=== PATIENT | female | born 1965 | race Caucasian/White ===

== ENCOUNTER 2021-05-04 19:22 | Inpatient (IN) | payer OTHER ==
[2021-05-04] MEDS ORDERED: SODIUM CHLORIDE 0.9% 1,000 ML IV STA (20:00)
[2021-05-04] MEDS ORDERED: HYDROmorphone 0.5 MG/0.5 ML SYRINGE IVP STA (20:00)
[2021-05-04] MEDS ORDERED: ONDANSETRON 4 MG/2 ML VIAL IVP STA (20:00)
--- NOTE | 2021-05-04 20:12 | ED ---
General Adult HPI - General Chief complaint: Abdominal Pain Stated complaint: chest pain, side pain Time Seen by Provider: 05/04/21 19:40 Source: patient, RN notes reviewed Mode of arrival: wheelchair Limitations: no limitations - History of Present Illness Initial comments: 55-year-old female with a possible history of asthma, hypertension presents to the emergency room for a chief complaint of abdominal pain. Patient reports that she has had upper abdominal pain for about 4 days now. Patient states this started after she thought she eats too much for dinner. Patient states that she is also having nausea and vomiting. Patient denies fevers. Patient denies any history of cholecystectomy. Patient reports she ate some chicken for dinner and it worsened significantly today. Currently rating pain at a 7 out of 10. Patient has no other complaints at this time including shortness of breath, chest pain, headache, or visual changes. - Related Data Home Medications Medication Instructions Recorded Confirmed Cyanocobalamin (Vitamin B-12) 1,000 mcg PO DAILY 05/04/21 05/04/21 [Vitamin B-12] Levothyroxine Sodium [Euthyrox] 50 mcg PO DAILY@0230 05/04/21 05/04/21 Metoprolol Tartrate [Lopressor] 25 mg PO BID 05/04/21 05/04/21 Previous Rx's Medication Instructions Recorded Losartan [Cozaar] 25 mg PO DAILY #30 tab 05/15/16 Allergies Allergy/AdvReac Type Severity Reaction Status Date / Time codeine Allergy Rash/Hives Verified 05/04/21 20:33 meperidine HCl [From Demerol] Allergy Rash/Hives Verified 05/04/21 20:33 Penicillins Allergy Rash/Hives Verified 05/04/21 22:42 acetaminophen [From Vicodin] AdvReac Nausea & Verified 05/04/21 20:33 Vomiting hydrocodone bitartrate AdvReac Nausea & Verified 05/04/21 20:33 [From Vicodin] Vomiting Review of Systems ROS Statement: Those systems with pertinent positive or pertinent negative responses have been documented in the HPI. ROS Other: All systems not noted in ROS Statement are negative. Past Medical History Past Medical History: Asthma, Hypertension, Thyroid Disorder History of Any Multi-Drug Resistant Organisms: None Reported Past Surgical History: Section, Hysterectomy, Orthopedic Surgery Additional Past Surgical History / Comment(s): ORIF LT ELBOW. RT EAR KELOID REMOVED Past Anesthesia/Blood Transfusion Reactions: No Reported Reaction Past Psychological History: No Psychological Hx Reported Smoking Status: Former smoker Past Alcohol Use History: None Reported Past Drug Use History: None Reported - Past Family History Mother History Unknown: Yes Additional Family Medical History / Comment(s): PT ADOPTED FAMILY HX UNKNOWN General Exam Limitations: no limitations General appearance: alert, in no apparent distress Head exam: Present: atraumatic, normocephalic, normal inspection Eye exam: Present: normal appearance, PERRL, EOMI. Absent: scleral icterus ENT exam: Present: normal exam, mucous membranes moist Neck exam: Present: normal inspection, full ROM. Absent: tenderness Respiratory exam: Present: normal lung sounds bilaterally. Absent: respiratory distress, wheezes Cardiovascular Exam: Present: regular rate, normal rhythm, normal heart sounds GI/Abdominal exam: Present: soft, tenderness (epigastric and RUQ tenderness), normal bowel sounds. Absent: distended, guarding, rebound, rigid Neurological exam: Present: alert Course Vital Signs 05/04/21 19:31 Temperature 98.5 F Pulse Rate 96 Respiratory 20 Rate Blood Pressure 150/91 O2 Sat by Pulse 97 Oximetry EKG Findings - EKG Comments: EKG Findings:: Normal sinus rhythm, ventricular rate 97, MT interval 134, QTC 436 Medical Decision Making - Medical Decision Making Vitals are stable. CBC is unremarkable. CMP however does show transaminitis and pancreatitis. Troponin negative. EKG nonischemic. Urinalysis does show ev idence of infection. Ultrasound was obtained which did show a slightly thickened gallbladder wall but they were unable to see the, bile duct. Concern for cholecystitis, patient started on Zosyn. Surgery consulted. CT pending prior to computer shut down. Patient was started on Levaquin given she has a penicillin ALLERGY that she forgot about. - Lab Data Result diagrams: 05/04/21 20:03 05/04/21 20:03 Lab Results 05/04/21 05/04/21 05/04/21 Range/Units 20:03 20:03 20:03 WBC 9.4 (3.8-10.6) k/uL RBC 4.66 (3.80-5.40) m/uL Hgb 14.5 (11.4-16.0) gm/dL Hct 41.3 (34.0-46.0) % MCV 88.7 (80.0-100.0) fL MCH 31.2 (25.0-35.0) pg MCHC 35.2 (31.0-37.0) g/dL RDW 12.5 (11.5-15.5) % Plt Count 326 (150-450) k/uL MPV 7.3 Neutrophils % 73 % Lymphocytes % 15 % Monocytes % 9 % Eosinophils % 2 % Basophils % 0 % Neutrophils # 6.9 (1.3-7.7) k/uL Lymphocytes # 1.4 (1.0-4.8) k/uL Monocytes # 0.9 (0-1.0) k/uL Eosinophils # 0.2 (0-0.7) k/uL Basophils # 0.0 (0-0.2) k/uL PT 9.8 (9.0-12.0) sec INR 0.9 (<1.2) APTT 22.8 (22.0-30.0) sec Sodium (137-145) mmol/L Potassium (3.5-5.1) mmol/L Chloride (98-107) mmol/L Carbon Dioxide (22-30) mmol/L Anion Gap mmol/L BUN (7-17) mg/dL Creatinine (0.52-1.04) mg/dL Est GFR (CKD-EPI)AfAm (>60 ml/min/1.73 sqM) Est GFR (CKD-EPI)NonAf (>60 ml/min/1.73 sqM) Glucose (74-99) mg/dL Plasma Lactic Acid Shivam (0.7-2.0) mmol/L Calcium (8.4-10.2) mg/dL Total Bilirubin (0.2-1.3) mg/dL AST (14-36) U/L ALT (4-34) U/L Alkaline Phosphatase (38-126) U/L Troponin I (0.000-0.034) ng/mL Total Protein (6.3-8.2) g/dL Albumin (3.5-5.0) g/dL Amylase (30-110) U/L Lipase (23-300) U/L Urine Color Yellow Urine Appearance Cloudy H (Clear) Urine pH 6.0 (5.0-8.0) Ur Specific Hudson 1.019 (1.001-1.035) Urine Protein Trace H (Negative) Urine Glucose (UA) Negative (Negative) Urine Ketones Negative (Negative) Urine Blood Trace H (Negative) Urine Nitrite Negative (Negative) Urine Bilirubin Negative (Negative) Urine Urobilinogen <2.0 (<2.0) mg/dL Ur Leukocyte Esterase Large H (Negative) Urine RBC 2 (0-5) /hpf Urine WBC >182 H (0-5) /hpf Ur Squamous Epith Cells 4 (0-4) /hpf Urine Bacteria Few H (None) /hpf Urine Mucus Rare H (None) /hpf 05/04/21 05/04/21 05/04/21 Range/Units 20:03 20:03 20:03 WBC (3.8-10.6) k/uL RBC (3.80-5.40) m/uL Hgb (11.4-16.0) gm/dL Hct (34.0-46.0) % MCV (80.0-100.0) fL MCH (25.0-35.0) pg MCHC (31.0-37.0) g/dL RDW (11.5-15.5) % Plt Count (150-450) k/uL MPV Neutrophils % % Lymphocytes % % Monocytes % % Eosinophils % % Basophils % % Neutrophils # (1.3-7.7) k/uL Lymphocytes # (1.0-4.8) k/uL Monocytes # (0-1.0) k/uL Eosinophils # (0-0.7) k/uL Basophils # (0-0.2) k/uL PT (9.0-12.0) sec INR (<1.2) APTT (22.0-30.0) sec Sodium 135 L (137-145) mmol/L Potassium 4.2 (3.5-5.1) mmol/L Chloride 99 (98-107) mmol/L Carbon Dioxide 25 (22-30) mmol/L Anion Gap 11 mmol/L BUN 18 H (7-17) mg/dL Creatinine 0.74 (0.52-1.04) mg/dL Est GFR (CKD-EPI)AfAm >90 (>60 ml/min/1.73 sqM) Est GFR (CKD-EPI)NonAf >90 (>60 ml/min/1.73 sqM) Glucose 141 H (74-99) mg/dL Plasma Lactic Acid Shivam 1.2 (0.7-2.0) mmol/L Calcium 9.7 (8.4-10.2) mg/dL Total Bilirubin 0.7 (0.2-1.3) mg/dL AST 102 H (14-36) U/L ALT 205 H (4-34) U/L Alkaline Phosphatase 151 H (38-126) U/L Troponin I <0.012 (0.000-0.034) ng/mL Total Protein 7.6 (6.3-8.2) g/dL Albumin 4.7 (3.5-5.0) g/dL Amylase 444 H* (30-110) U/L Lipase 3436 H (23-300) U/L Urine Color Urine Appearance (Clear) Urine pH (5.0-8.0) Ur Specific Hudson (1.001-1.035) Urine Protein (Negative) Urine Glucose (UA) (Negative) Urine Ketones (Negative) Urine Blood (Negative) Urine Nitrite (Negative) Urine Bilirubin (Negative) Urine Urobilinogen (<2.0) mg/dL Ur Leukocyte Esterase (Negative) Urine RBC (0-5) /hpf Urine WBC (0-5) /hpf Ur Squamous Epith Cells (0-4) /hpf Urine Bacteria (None) /hpf Urine Mucus (None) /hpf Disposition Clinical Impression: Pancreatitis, Transaminitis, Abdominal pain Disposition: ADMITTED IP TO THIS HOSP Is patient prescribed a controlled substance at d/c from ED?: No Referrals: Naomi Godoy MD [Primary Care Provider] - 1-2 days Time of Disposition: 22:17
[2021-05-04 20:25] LABS: ALT 205 U/L (4-34); AST 102 U/L (14-36); African American GFR (CKD) >90 (>60 ml/min/1.73 sqM); Albumin 4.7 g/dL (3.5-5.0); Alkaline Phosphatase 151 U/L (38-126); Anion Gap 11 mmol/L; Blood Urea Nitrogen 18 mg/dL (7-17); Calcium 9.7 mg/dL (8.4-10.2); Carbon Dioxide 25 mmol/L (22-30); Chloride 99 mmol/L (98-107); Glucose 141 mg/dL (74-99); Non-African American GFR(CKD) >90 (>60 ml/min/1.73 sqM); Potassium 4.2 mmol/L (3.5-5.1); Sodium 135 mmol/L (137-145); Total Bilirubin 0.7 mg/dL (0.2-1.3); Total Protein 7.6 g/dL (6.3-8.2)
[2021-05-04 20:29] LABS: Basophils % (A) 0 %; Eosinophils # (A) 0.2 k/uL (0-0.7); Eosinophils % (A) 2 %; HCT 41.3 % (34.0-46.0); HGB 14.5 gm/dL (11.4-16.0); Lymphocytes # (A) 1.4 k/uL (1.0-4.8); Lymphocytes % (A) 15 %; MCH 31.2 pg (25.0-35.0); MCHC 35.2 g/dL (31.0-37.0); MCV 88.7 fL (80.0-100.0); Mean Platelet Volume 7.3; Monocytes # (A) 0.9 k/uL (0-1.0); Monocytes % (A) 9 %; Neutrophils # (A) 6.9 k/uL (1.3-7.7); Neutrophils % (A) 73 %; Platelet Count 326 k/uL (150-450); RBC 4.66 m/uL (3.80-5.40); RDW 12.5 % (11.5-15.5); WBC 9.4 k/uL (3.8-10.6)
[2021-05-04 20:31] LABS: Lipase 3436 U/L (23-300)
[2021-05-04 20:35] LABS: Appearance,Urine Cloudy (Clear); Bacteria,Urine Few /hpf; Bilirubin,Urine Negative (Negative); Blood,Urine Trace (Negative); Color,Urine Yellow; Glucose,Urine (UA) Negative (Negative); Ketones,Urine Negative (Negative); Leukocyte Esterase,Urine Large (Negative); Mucus,Urine Rare /hpf; Nitrite,Urine Negative (Negative); Protein,Urine Trace (Negative); RBC,Urine 2 /hpf (0-5); Specific Gravity,Urine 1.019 (1.001-1.035); Squamous Epithelial Cell,Urine 4 /hpf (0-4); Urobilinogen,Urine <2.0 mg/dL (<2.0); WBC,Urine >182 /hpf (0-5)
[2021-05-04 20:36] LABS: Amylase 444 U/L (30-110)
--- NOTE | 2021-05-04 20:37 | XR ---
EXAMINATION TYPE: XR KUB DATE OF EXAM: 05/04/2021 COMPARISON: NONE HISTORY: Pain TECHNIQUE: 2 views FINDINGS: Bowel gas pattern is normal. There is no sign of intestinal obstruction or pneumoperitoneum . Fecal pattern is normal. There is no evidence of a mass. There are no pathologic calcifications ove r the kidneys. IMPRESSION: Nonacute abdomen.
--- NOTE | 2021-05-04 20:38 | XR ---
EXAMINATION TYPE: XR chest 2V DATE OF EXAM: 05/04/2021 COMPARISON: 05/14/2016 HISTORY: Epigastric pain TECHNIQUE: 2 views FINDINGS: Heart and mediastinum are normal. Lungs are clear. Diaphragm is normal. Bony thorax is inta ct. Pulmonary vascularity is normal. IMPRESSION: Normal chest. No change.
[2021-05-04 20:52] LABS: INR 0.9 (<1.2); Partial Thromboplastin Time 22.8 sec (22.0-30.0); Prothrombin Time 9.8 sec (9.0-12.0)
--- NOTE | 2021-05-04 21:38 | US ---
EXAMINATION TYPE: US gallbladder DATE OF EXAM: 05/04/2021 COMPARISON: NONE CLINICAL HISTORY: pain, nv. Pain, nausea, vomiting. EXAM MEASUREMENTS: Liver Length: 18.3 cm Gallbladder Wall: 0.38 cm CBD: Not seen. Right Kidney: 11.4 x 5.2 x 4.8 cm Limited due to patient body habitus and overlying bowel gas. Pancreas: Duct measures 2.7 cm. Limited visibility of tail. Liver: Complex area seen within the left lobe: 1.2 x 1.4 x 0.8 cm. Increased echogenicity and attenu ation. Appears enlarged and coarse. ?Complex, indistinct area anterior to the left lobe of the liver versus normal tissue?- arrow indicat es this area in transverse image. Gallbladder: Internal echoes versus artifact seen. Wall appears to measure slightly thickened at 0.4 cm. Evidence for sonographic Pablo's sign: No CBD: Not seen. Right Kidney: No hydronephrosis or masses seen IMPRESSION: 1.4 cm cyst in the left lobe of the liver. No gallstones. Gallbladder not well evaluated due to patie nt's size. No dilated ducts. Fatty infiltration of the liver.
[2021-05-04] MEDS ORDERED: PIPERACILLIN-TAZOBACTAM 3.375 GM in SODIUM CHLORIDE 0.9% 100 ML IVPB STA (21:54)
[2021-05-04] MEDS ORDERED: NALOXONE 0.4 MG/ML 1 ML VIAL IV PRN (22:10)
--- NOTE | 2021-05-04 22:27 | CT ---
EXAMINATION TYPE: CT abdomen pelvis w con DATE OF EXAM: 05/04/2021 COMPARISON: None HISTORY: EPIGASTRIC PAIN X4 DAYS CT DLP: 1845.2 mGycm Automated exposure control for dose reduction was used. CONTRAST: Performed with IV Contrast, patient injected with 100 mL of Isovue 300. Images obtained from the diaphragm to the floor the pelvis with IV contrast. Lung bases are clear. There is no pleural effusion. Heart size is normal. There is no pericardial eff usion. There is some fatty infiltration of the liver. There is 1 cm cyst in the left lobe of the liver. Sple en appears intact. There is minimal fat stranding in the left anterior pararenal space. The pancreas is intact. I do not see any significant focal abnormality of the pancreas. The bile ducts are not dil ated. Gallbladder appears normal. There is no adrenal mass. Kidneys show satisfactory contrast opacification. There is no hydronephrosi s. Delayed images show normal renal excretion. The ureters are not dilated. Bladder distends smoothly . There is no inguinal hernia. There is hysterectomy. There is no free fluid in the pelvis. Lumbar ve rtebra have normal alignment. There is no compression fracture. The bony pelvis is intact. The hip wilian ints are intact. There is no hip dysplasia. There is no mesenteric edema. There is no ascites or free air. There is no sign of a bowel obstructio n. Appendix appears normal. IMPRESSION: There is some minimal fat stranding and fluid in the left anterior pararenal space. This could relate to some focal pancreatitis involving the tail of the pancreas. Mild fatty infiltration of the liver.
[2021-05-04] MEDS ORDERED: LEVOFLOXACIN 750MG-D5W PMX 750 MG in DEXTROSE/WATER 1 150ML.BAG IVPB STA (22:47)
[2021-05-05] MEDS: SODIUM CHLORIDE 0.9% 1,000 ML IV SCH ×3 (06:17→20:47)
[2021-05-05] MEDS ORDERED: PIPERACILLIN-TAZOBACTAM 3.375 GM in SODIUM CHLORIDE 0.9% 100 ML IVPB SCH (07:00)
[2021-05-05] MEDS: HYDROmorphone 0.5 MG/0.5 ML SYRINGE IVP PRN ×3 (08:06→18:25)
[2021-05-05] MEDS: ONDANSETRON 4 MG/2 ML VIAL IVP PRN ×2 (09:04→18:24)
[2021-05-05 12:52] LABS: ALT 139 U/L (4-34); AST 59 U/L (14-36); African American GFR (CKD) >90 (>60 ml/min/1.73 sqM); Albumin 3.7 g/dL (3.5-5.0); Albumin/Globulin Ratio 1.5; Alkaline Phosphatase 117 U/L (38-126); Anion Gap 7 mmol/L; Blood Urea Nitrogen 12 mg/dL (7-17); Calcium 8.5 mg/dL (8.4-10.2); Carbon Dioxide 25 mmol/L (22-30); Chloride 105 mmol/L (98-107); Globulin 2.5 g/dL; Glucose 117 mg/dL (74-99); Lipase 1944 U/L (23-300); Non-African American GFR(CKD) >90 (>60 ml/min/1.73 sqM); Potassium 4.1 mmol/L (3.5-5.1); Sodium 137 mmol/L (137-145); Total Bilirubin 0.5 mg/dL (0.2-1.3); Total Protein 6.2 g/dL (6.3-8.2)
[2021-05-05 13:01] LABS: Amylase 331 U/L (30-110)
[2021-05-05] MEDS: METOPROLOL TARTRATE 25 MG TAB PO SCH ×2 (13:33→20:46)
--- NOTE | 2021-05-05 14:56 | P.GSCN ---
<Elsa Manzanares - Last Filed: 05/05/21 14:45> History of Present Illness Consult date: 05/05/21 History of present illness: CHIEF COMPLAINT: Abdominal pain HISTORY OF PRESENT ILLNESS: This is a 55-year-old female with a known history of hypertension, asthma, hypothyroidism and former smoker. Past surgical history includes and hysterectomy. Patient presents to emergency room with complaints of epigastric abdominal pain. Symptoms started Monday evening after eating a chicken hari. Patient has never had symptoms like this before. She was having nausea and vomiting. She was found to have elevated amylase and lipase with computed tomography scan of the abdomen showing minimal fat stranding and fluid in the left anterior pararenal space. This could relate to some focal pancreatitis involving the tail of the pancreas. Mild fatty infiltration of the liver. Ultrasound gallbladder 1.4 cm cyst in the left lobe of the liver. No gallstones. Gallbladder not well evaluated due to patient's size. No dilated ducts. Fatty infiltration of the liver. Patient denies alcohol use. Surgical consult was placed for pancreatitis. PAST MEDICAL HISTORY: See list. PAST SURGICAL HISTORY: See list. MEDICATIONS: See list. ALLERGIES: See list. SOCIAL HISTORY: No illicit drug use. REVIEW OF SYSTEMS: CONSTITUTIONAL: Denies fever or chills. HEENT: Denies blurred vision, vision changes, or eye pain. Denies hemoptysis CARDIOVASCULAR: Denies chest pain or pressure. RESPIRATORY: No shortness of breath. GASTROINTESTINAL: See HPI for pertinent findings HEMATOLOGIC: Denies bleeding disorders. GENITOURINARY: Denies any blood in urine or increased urinary frequency. SKIN: Denies pruitis. Denies rash. PHYSICAL EXAM: VITAL SIGNS: Reviewed GENERAL: Well-developed in no acute distress. HEENT: No sclera icterus. Extraocular movements grossly intact. Moist buccal mucosa. Head is atraumatic, normocephalic. No nasal drainage. ABDOMEN: Soft. obese. Nondistended. Tenderness epigastric area. NEUROLOGIC: Alert and oriented. Cranial nerves II through XII grossly intact. LABORATORY DATA: WBC is 9.4 hemoglobin 14.5 platelets 326 INR 0.9 sodium 137 crit and 0.66 AST decreased from 102-59 ALT decreased from 205-139 alk phos decreased from 151-117 Amylase 444 down to 331 Lipase 3436 down to 1944 Urinalysis positive for UTI. Urine culture pending IMAGING: Computed tomography scan findings as stated above Gallbladder ultrasound as stated above ASSESSMENT: 1. Acute pancreatitis PLAN: -Keep patient by mouth -Continue IV fluids -Continue pain medication as needed -Follow up on amylase, lipase and LFTs in a.m. -Further recommendations forthcoming per surgeon Physician Personal Development Coach note has been reviewed by physician. Signing provider agrees with the documented findings, assessment, and plan of care. Past Medical History Past Medical History: Asthma, Hypertension, Thyroid Disorder Additional Past Medical History / Comment(s): hypothyroid History of Any Multi-Drug Resistant Organisms: None Reported Past Surgical History: Section, Hysterectomy, Orthopedic Surgery Additional Past Surgical History / Comment(s): ORIF LT ELBOW. RT EAR KELOID REMOVED Past Anesthesia/Blood Transfusion Reactions: No Reported Reaction Past Psychological History: No Psychological Hx Reported Smoking Status: Former smoker Past Alcohol Use History: None Reported Additional Past Alcohol Use History / Comment(s): STOPPED SMOKING OVER 20 YEARS AGO Past Drug Use History: None Reported - Past Family History Mother History Unknown: Yes Additional Family Medical History / Comment(s): PT ADOPTED FAMILY HX UNKNOWN Medications and Allergies Home Medications Medication Instructions Recorded Confirmed Type Losartan [Cozaar] 25 mg PO DAILY #30 tab 05/15/16 05/04/21 Rx Cyanocobalamin (Vitamin B-12) 1,000 mcg PO DAILY 05/04/21 05/04/21 History [Vitamin B-12] Levothyroxine Sodium [Euthyrox] 50 mcg PO DAILY@0230 05/04/21 05/04/21 History Metoprolol Tartrate [Lopressor] 25 mg PO BID 05/04/21 05/04/21 History Allergies Allergy/AdvReac Type Severity Reaction Status Date / Time codeine Allergy Rash/Hives Verified 05/04/21 20:33 meperidine HCl [From Demerol] Allergy Rash/Hives Verified 05/04/21 20:33 Penicillins Allergy Rash/Hives Verified 05/04/21 22:42 acetaminophen [From Vicodin] AdvReac Nausea & Verified 05/04/21 20:33 Vomiting hydrocodone bitartrate AdvReac Nausea & Verified 05/04/21 20:33 [From Vicodin] Vomiting Surgical - Exam Vital Signs Temp Pulse Resp BP Pulse Ox 98.5 F 96 20 150/91 97 05/04/21 19:31 05/04/21 19:31 05/04/21 19:31 05/04/21 19:31 05/04/21 19:31 Results - Labs 05/04/21 20:03 05/05/21 12:17 Abnormal Lab Results - Last 24 Hours (Table) 05/04/21 05/04/21 05/05/21 Range/Units 20:03 20:03 12:17 Sodium 135 L (137-145) mmol/L BUN 18 H (7-17) mg/dL Glucose 141 H 117 H (74-99) mg/dL AST 102 H 59 H (14-36) U/L ALT 205 H 139 H (4-34) U/L Alkaline Phosphatase 151 H (38-126) U/L Total Protein 6.2 L (6.3-8.2) g/dL Amylase 444 H* 331 H* (30-110) U/L Lipase 3436 H 1944 H (23-300) U/L Urine Appearance Cloudy H (Clear) Urine Protein Trace H (Negative) Urine Blood Trace H (Negative) Ur Leukocyte Esterase Large H (Negative) Urine WBC >182 H (0-5) /hpf Urine Bacteria Few H (None) /hpf Urine Mucus Rare H (None) /hpf Microbiology - Last 24 Hours (Table) 05/04/21 20:03 Urine Culture - Preliminary Urine,Voided Diabetes panel 05/04/21 05/05/21 Range/Units 20:03 12:17 Sodium 135 L 137 (137-145) mmol/L Potassium 4.2 4.1 (3.5-5.1) mmol/L Chloride 99 105 (98-107) mmol/L Carbon Dioxide 25 25 (22-30) mmol/L BUN 18 H 12 (7-17) mg/dL Creatinine 0.74 0.66 (0.52-1.04) mg/dL Glucose 141 H 117 H (74-99) mg/dL Calcium 9.7 8.5 (8.4-10.2) mg/dL AST 102 H 59 H (14-36) U/L ALT 205 H 139 H (4-34) U/L Alkaline Phosphatase 151 H 117 (38-126) U/L Total Protein 7.6 6.2 L (6.3-8.2) g/dL Albumin 4.7 3.7 (3.5-5.0) g/dL Calcium panel 05/04/21 05/05/21 Range/Units 20:03 12:17 Calcium 9.7 8.5 (8.4-10.2) mg/dL Albumin 4.7 3.7 (3.5-5.0) g/dL Pituitary panel 05/04/21 05/05/21 Range/Units 20:03 12:17 Sodium 135 L 137 (137-145) mmol/L Potassium 4.2 4.1 (3.5-5.1) mmol/L Chloride 99 105 (98-107) mmol/L Carbon Dioxide 25 25 (22-30) mmol/L BUN 18 H 12 (7-17) mg/dL Creatinine 0.74 0.66 (0.52-1.04) mg/dL Glucose 141 H 117 H (74-99) mg/dL Calcium 9.7 8.5 (8.4-10.2) mg/dL Adrenal panel 05/04/21 05/05/21 Range/Units 20:03 12:17 Sodium 135 L 137 (137-145) mmol/L Potassium 4.2 4.1 (3.5-5.1) mmol/L Chloride 99 105 (98-107) mmol/L Carbon Dioxide 25 25 (22-30) mmol/L BUN 18 H 12 (7-17) mg/dL Creatinine 0.74 0.66 (0.52-1.04) mg/dL Glucose 141 H 117 H (74-99) mg/dL Calcium 9.7 8.5 (8.4-10.2) mg/dL Total Bilirubin 0.7 0.5 (0.2-1.3) mg/dL AST 102 H 59 H (14-36) U/L ALT 205 H 139 H (4-34) U/L Alkaline Phosphatase 151 H 117 (38-126) U/L Total Protein 7.6 6.2 L (6.3-8.2) g/dL Albumin 4.7 3.7 (3.5-5.0) g/dL <Alfonso Horton - Last Filed: 05/05/21 19:13> History of Present Illness History of present illness: As above. Patient with admission for acute pancreatitis. Patient's liver enzymes also elevated on admission suggesting biliary etiology. Ultrasound shows possible debris within the gallbladder. Continue nothing by mouth this evening. Recheck labs tomorrow. Monitor patient's pain. Likely will require interval laparoscopic cholecystectomy. Surgical - Exam Vital Signs Temp Pulse Resp BP Pulse Ox 98.5 F 96 20 150/91 97 05/04/21 19:31 05/04/21 19:31 05/04/21 19:31 05/04/21 19:31 05/04/21 19:31 Results - Labs 05/04/21 20:03 05/05/21 12:17 Abnormal Lab Results - Last 24 Hours (Table) 05/04/21 05/04/21 05/05/21 Range/Units 20:03 20:03 12:17 Sodium 135 L (137-145) mmol/L BUN 18 H (7-17) mg/dL Glucose 141 H 117 H (74-99) mg/dL AST 102 H 59 H (14-36) U/L ALT 205 H 139 H (4-34) U/L Alkaline Phosphatase 151 H (38-126) U/L Total Protein 6.2 L (6.3-8.2) g/dL Amylase 444 H* 331 H* (30-110) U/L Lipase 3436 H 1944 H (23-300) U/L Urine Appearance Cloudy H (Clear) Urine Protein Trace H (Negative) Urine Blood Trace H (Negative) Ur Leukocyte Esterase Large H (Negative) Urine WBC >182 H (0-5) /hpf Urine Bacteria Few H (None) /hpf Urine Mucus Rare H (None) /hpf Microbiology - Last 24 Hours (Table) 05/04/21 20:03 Urine Culture - Preliminary Urine,Voided Diabetes panel 05/04/21 05/05/21 Range/Units 20:03 12:17 Sodium 135 L 137 (137-145) mmol/L Potassium 4.2 4.1 (3.5-5.1) mmol/L Chloride 99 105 (98-107) mmol/L Carbon Dioxide 25 25 (22-30) mmol/L BUN 18 H 12 (7-17) mg/dL Creatinine 0.74 0.66 (0.52-1.04) mg/dL Glucose 141 H 117 H (74-99) mg/dL Calcium 9.7 8.5 (8.4-10.2) mg/dL AST 102 H 59 H (14-36) U/L ALT 205 H 139 H (4-34) U/L Alkaline Phosphatase 151 H 117 (38-126) U/L Total Protein 7.6 6.2 L (6.3-8.2) g/dL Albumin 4.7 3.7 (3.5-5.0) g/dL Calcium panel 05/04/21 05/05/21 Range/Units 20:03 12:17 Calcium 9.7 8.5 (8.4-10.2) mg/dL Albumin 4.7 3.7 (3.5-5.0) g/dL Pituitary panel 05/04/21 05/05/21 Range/Units 20:03 12:17 Sodium 135 L 137 (137-145) mmol/L Potassium 4.2 4.1 (3.5-5.1) mmol/L Chloride 99 105 (98-107) mmol/L Carbon Dioxide 25 25 (22-30) mmol/L BUN 18 H 12 (7-17) mg/dL Creatinine 0.74 0.66 (0.52-1.04) mg/dL Glucose 141 H 117 H (74-99) mg/dL Calcium 9.7 8.5 (8.4-10.2) mg/dL Adrenal panel 05/04/21 05/05/21 Range/Units 20:03 12:17 Sodium 135 L 137 (137-145) mmol/L Potassium 4.2 4.1 (3.5-5.1) mmol/L Chloride 99 105 (98-107) mmol/L Carbon Dioxide 25 25 (22-30) mmol/L BUN 18 H 12 (7-17) mg/dL Creatinine 0.74 0.66 (0.52-1.04) mg/dL Glucose 141 H 117 H (74-99) mg/dL Calcium 9.7 8.5 (8.4-10.2) mg/dL Total Bilirubin 0.7 0.5 (0.2-1.3) mg/dL AST 102 H 59 H (14-36) U/L ALT 205 H 139 H (4-34) U/L Alkaline Phosphatase 151 H 117 (38-126) U/L Total Protein 7.6 6.2 L (6.3-8.2) g/dL Albumin 4.7 3.7 (3.5-5.0) g/dL
--- NOTE | 2021-05-05 22:22 | P.HPIM ---
History of Present Illness H&P Date: 05/05/21 Chief Complaint: Abdominal pain Patient is a 55-year-old female with a known history of hypertension, hypothyroidism, asthma and previous history of smoking stopped 20 years ago presents to ER with complaints of abdominal pain mainly in the epigastric region. Patient has been having symptoms for the past 5 to 6 days. Patient initially thought it is due to gastric reflux. Symptoms started after eating chicken Gyro. Associated with nausea and episode of vomiting twice at home. Patient otherwise denied any complaints of chest pain or shortness of breath. No prior history of pancreatitis. No fever no chills. No diarrhea. No constipation. Denied any alcohol use. No prior history of hyperlipidemia. KUB x-ray showed normal acute abdomen. Chest x-ray showed normal chest. No change. Ultrasound gallbladder showed 1.4 cm cyst in the left lobe of the liver. No g allstones. Gallbladder not well evaluated due to patient size. No dilated ducts. Fatty infiltration of the liver. CT of the abdomen pelvis showed there is some minimal fat stranding and fluid in the left anterior pararenal space this could be related to some focal pancreatitis involving the tail of the pancreas. Mild fatty infiltration of the liver. Laboratory data showed sodium 135 potassium 4.2 BUN 18 and creatinine 0.74 blood sugar is 141 AST 102 ALT 205 and alk phos 151 Amylase 444 and lipase level 3436 Urinalysis showed cloudy with large leukocyte esterase and elevated WBCs. Review of Systems Constitutional: Patient denies any fever or chills . No generalized weakness or weight loss. Abdomen: Patient is complaining of epigastric abdominal pain. Associate with nausea and episodes of vomiting. No diarrhea. No constipation.. Cardiovascular: Patient denies any chest pain or short of breath no palpitations. Respiratory: patient denied any cough or sputum production. No shortness of breath Neurologic: Patient denied any numbness or tingling headache. Musculoskeletal: Patient denies any complaints of joint swelling or deformity. Skin: Negative Psychiatric: Negative Endocrine: No heat or cold intolerance. No recent weight gain. Genitourinary: No dysuria or hematuria. All other 14 point ROS negative except the above Past Medical History Past Medical History: Asthma, Hypertension, Thyroid Disorder Additional Past Medical History / Comment(s): hypothyroid History of Any Multi-Drug Resistant Organisms: None Reported Past Surgical History: Section, Hysterectomy, Orthopedic Surgery Additional Past Surgical History / Comment(s): ORIF LT ELBOW. RT EAR KELOID REMOVED Past Anesthesia/Blood Transfusion Reactions: No Reported Reaction Past Psychological History: No Psychological Hx Reported Smoking Status: Former smoker Past Alcohol Use History: None Reported Additional Past Alcohol Use History / Comment(s): STOPPED SMOKING OVER 20 YEARS AGO Past Drug Use History: None Reported - Past Family History Mother History Unknown: Yes Additional Family Medical History / Comment(s): PT ADOPTED FAMILY HX UNKNOWN Medications and Allergies Home Medications Medication Instructions Recorded Confirmed Type Losartan [Cozaar] 25 mg PO DAILY #30 tab 05/15/16 05/04/21 Rx Cyanocobalamin (Vitamin B-12) 1,000 mcg PO DAILY 05/04/21 05/04/21 History [Vitamin B-12] Levothyroxine Sodium [Euthyrox] 50 mcg PO DAILY@0230 05/04/21 05/04/21 History Metoprolol Tartrate [Lopressor] 25 mg PO BID 05/04/21 05/04/21 History Allergies Allergy/AdvReac Type Severity Reaction Status Date / Time codeine Allergy Rash/Hives Verified 05/04/21 20:33 meperidine HCl [From Demerol] Allergy Rash/Hives Verified 05/04/21 20:33 Penicillins Allergy Rash/Hives Verified 05/04/21 22:42 acetaminophen [From Vicodin] AdvReac Nausea & Verified 05/04/21 20:33 Vomiting hydrocodone bitartrate AdvReac Nausea & Verified 05/04/21 20:33 [From Vicodin] Vomiting Physical Exam Vitals: Vital Signs Temp Pulse Pulse Resp BP BP Pulse Ox 05/05/21 08:00 85 16 05/05/21 07:00 97.8 F 85 16 146/87 99 05/05/21 06:40 70 18 134/70 97 05/04/21 19:31 98.5 F 96 20 150/91 97 Intake and Output 05/04/21 05/05/21 05/05/21 22:59 06:59 14:59 Other: Voiding Method Toilet Weight 106.594 kg 106.594 kg PHYSICAL EXAMINATION: Patient is lying in the bed comfortably, no acute distress, awake alert and oriented.. HEENT: Normocephalic. Neck is supple. Pupils reactive. Nostrils clear. Oral cavity is moist. Neck reveals no JVD, carotid bruits, or thyromegaly. CHEST EXAMINATION: Trachea is central. Symmetrical expansion. Lung chawla clear to auscultation and percussion. CARDIAC: Normal S1, S2 with no gallops. No murmurs ABDOMEN: Soft.Epigastric tenderness. No guarding or rigidity. Bowel sounds normal. No organomegaly. No abdominal bruits. Extremities: reveal no edema. No clubbing or cyanosis Neurologically awake, alert, oriented x3 with well-coordinated movements. No focal deficits noted Skin: No rash or skin lesions. Psychiatric: Coperative. Nonsuicidal Musculoskeletal: No joint swelling or deformity. Normal range of motion. Results CBC & Chem 7: 05/04/21 20:03 05/05/21 12:17 Labs: Abnormal Lab Results - Last 24 Hours (Table) 05/04/21 05/04/21 Range/Units 20:03 20:03 Sodium 135 L (137-145) mmol/L BUN 18 H (7-17) mg/dL Glucose 141 H (74-99) mg/dL AST 102 H (14-36) U/L ALT 205 H (4-34) U/L Alkaline Phosphatase 151 H (38-126) U/L Amylase 444 H* (30-110) U/L Lipase 3436 H (23-300) U/L Urine Appearance Cloudy H (Clear) Urine Protein Trace H (Negative) Urine Blood Trace H (Negative) Ur Leukocyte Esterase Large H (Negative) Urine WBC >182 H (0-5) /hpf Urine Bacteria Few H (None) /hpf Urine Mucus Rare H (None) /hpf Microbiology - Last 24 Hours (Table) 05/04/21 20:03 Urine Culture - Preliminary Urine,Voided Thrombosis Risk Factor Assmnt - DVT/VTE Prophylaxis DVT/VTE Prophylaxis: Pharmacologic Prophylaxis ordered - Choose All That Apply Any of the Below Risk Factors Present?: Yes Each Factor Represents 1 point: Age 41-60 years, Obesity (BMI >25) Other Risk Factors: No Other congenital or acquired thrombophilia - If yes, enter type in comment: No Thrombosis Risk Factor Assessment Total Risk Factor Score: 2 Thrombosis Risk Factor Assessment Level: Low Risk Assessment and Plan Assessment: Acute pancreatitis in the tail of the pancreas. Initial episode. Exact etiology is not known. Acute urinary tract infection Transaminitis Fatty infiltration of the liver Hypothyroidism Hypertension Asthma not in exacerbation Previous history of smoking Obesity with BMI 39.1 DVT prophylaxis with heparin subcu Plan: Patient will be current on IV hydration and IV pain medications. Continue nothing by mouth. Patient denied any prior history of pancreatitis. Possible after eating heavy protein meal. Ultrasound abdominal and CT of the abdomen pelvis showed no evidence of ductal dilatation. Lipid panel was ordered. General surgery is on board. Continue to follow closely. Time with Patient: Greater than 30
[2021-05-06] MEDS: LEVOFLOXACIN 750MG-D5W PMX 750 MG in DEXTROSE/WATER 1 150ML.BAG IVPB SCH (00:02)
[2021-05-06] MEDS: LEVOTHYROXINE 50 MCG TAB PO SCH (02:43)
[2021-05-06] MEDS: SODIUM CHLORIDE 0.9% 1,000 ML IV SCH ×3 (02:49→20:07)
[2021-05-06 08:01] VITALS: RESP 16
[2021-05-06] MEDS: LOSARTAN 25 MG TAB PO SCH (08:30)
[2021-05-06] MEDS: CYANOCOBALAMIN 500 MCG TAB PO SCH (08:30)
[2021-05-06] MEDS: METOPROLOL TARTRATE 25 MG TAB PO SCH ×2 (08:30→20:08)
[2021-05-06] MEDS: ONDANSETRON 4 MG/2 ML VIAL IVP PRN ×2 (08:35→20:08)
[2021-05-06 09:16] LABS: Basophils # (A) 0.03 X 10*3/uL (0.00-0.10); Basophils % (A) 0.5 %; Eosinophils # (A) 0.14 X 10*3/uL (0.04-0.35); Eosinophils % (A) 2.2 %; HCT 35.5 % (37.2-46.3); HGB 11.8 g/dL (12.0-15.0); Lymphocytes # (A) 0.91 X 10*3/uL (0.90-5.00); Lymphocytes % (A) 14.6 %; MCH 30.2 pg (27.0-32.0); MCHC 33.2 g/dL (32.0-37.0); MCV 90.8 fL (80.0-97.0); Mean Platelet Volume 9.9 fL (9.5-12.2); Monocytes # (A) 0.65 X 10*3/uL (0.20-1.00); Monocytes % (A) 10.4 %; Neutrophils # (A) 4.51 X 10*3/uL (1.80-7.70); Neutrophils % (A) 72.1 %; Platelet Count 224 X 10*3/uL (140-440); RBC 3.91 X 10*6/uL (4.10-5.20); RDW 12.2 % (11.5-14.5); WBC 6.25 X 10*3/uL (4.50-10.00)
--- NOTE | 2021-05-06 12:42 | P.PN ---
<Elsa Manzanares - Last Filed: 05/06/21 14:17> Subjective Progress Note Date: 05/06/21 CHIEF COMPLAINT: Abdominal pain HISTORY OF PRESENT ILLNESS: Patient admitted to the hospital with pancreatitis. Patient reports that she still has the epigastric pain. She describes it as a fist to the stomach. She reports her pain about a 5 out of 10 which is better than admission. She did have 3-4 episodes of nausea and vomiting last night. Afebrile. WBC 6.25 hemoglobin 11.8 LFTs and amylase and lipase pending. Ultrasound showing possible debris in the gallbladder. PHYSICAL EXAM: VITAL SIGNS: Reviewed. GENERAL: Well-developed in no acute distress. HEENT: No sclera icterus. Extraocular movements grossly intact. Moist buccal mucosa. Head is atraumatic, normocephalic. ABDOMEN: Soft. Nondistended. Epigastric tenderness with tenderness in the left upper quadrant NEUROLOGIC: Alert and oriented. Cranial nerves II through XII grossly intact. ASSESSMENT: 1. Acute pancreatitis. Patient's liver enzymes elevated on admission suggesting biliary etiology and ultrasound showing possible debris in the gallbladder. PLAN: -Patient will likely require laparoscopic cholecystectomy -Further recommendations forthcoming per surgeon -Keep patient nothing by mouth -Continue to monitor LFTs and amylase and lipase -Continue IV fluids -Continue pain medication as needed -Continue antiemetics as needed. Zofran dosages changed every 6 hours instead of every 8 as needed Physician [employer] note has been reviewed by physician. Signing provider agrees with the documented findings, assessment, and plan of care. Objective - Vital Signs Vital signs: Vital Signs Temp 98.3 F 05/06/21 07:00 Pulse 83 05/06/21 07:00 Resp 16 05/06/21 07:00 BP 128/77 05/06/21 07:00 Pulse Ox 98 05/06/21 07:00 Intake & Output 05/05/21 05/06/21 05/06/21 18:59 06:59 18:59 Intake Total 0 Balance 0 Weight 106.594 kg Intake: Oral 0 Other: Voiding Method Toilet Toilet # Voids 2 2 - Labs CBC & Chem 7: 05/06/21 04:39 05/05/21 12:17 Labs: Abnormal Lab Results - Last 24 Hours (Table) 05/05/21 05/06/21 Range/Units 12:17 04:39 RBC 3.91 L (4.10-5.20) X 10*6/uL Hgb 11.8 L (12.0-15.0) g/dL Hct 35.5 L (37.2-46.3) % Glucose 117 H (74-99) mg/dL AST 59 H (14-36) U/L ALT 139 H (4-34) U/L Total Protein 6.2 L (6.3-8.2) g/dL Amylase 331 H* (30-110) U/L Lipase 1944 H (23-300) U/L Microbiology - Last 24 Hours (Table) 05/04/21 23:05 Blood Culture - Preliminary Blood No Growth after 24 hours 05/04/21 23:20 Blood Culture - Preliminary Blood No Growth after 24 hours <Alfonso Horton - Last Filed: 05/06/21 14:40> Subjective As above. She has had some episodes of nausea and vomiting. Her pain is improved. Today's liver enzymes amylase lipase pending. Keep nothing by mouth for now. Objective - Vital Signs Vital signs: Vital Signs Temp 98.3 F 05/06/21 14:00 Pulse 78 05/06/21 14:00 Resp 16 05/06/21 14:00 BP 136/81 05/06/21 14:00 Pulse Ox 98 05/06/21 14:00 Intake & Output 05/05/21 05/06/21 05/06/21 18:59 06:59 18:59 Intake Total 0 Balance 0 Weight 106.594 kg Intake: Oral 0 Other: Voiding Method Toilet Toilet # Voids 2 2 1 - Labs CBC & Chem 7: 05/06/21 04:39 05/05/21 12:17 Labs: Abnormal Lab Results - Last 24 Hours (Table) 05/06/21 Range/Units 04:39 RBC 3.91 L (4.10-5.20) X 10*6/uL Hgb 11.8 L (12.0-15.0) g/dL Hct 35.5 L (37.2-46.3) % Microbiology - Last 24 Hours (Table) 05/04/21 20:03 Urine Culture - Final Urine,Voided 05/04/21 23:05 Blood Culture - Preliminary Blood No Growth after 24 hours 07/27/21 23:20 Blood Culture - Preliminary Blood No Growth after 24 hours
--- NOTE | 2021-05-06 16:00 | P.PN ---
Subjective Progress Note Date: 05/06/21 Patient is a 55-year-old female with a known history of hypertension, hypothyroidism, asthma and previous history of smoking stopped 20 years ago presents to ER with complaints of abdominal pain mainly in the epigastric region. Patient has been having symptoms for the past 5 to 6 days. Patient initially thought it is due to gastric reflux. Symptoms started after eating chicken Gyro. Associated with nausea and episode of vomiting twice at home. Patient otherwise denied any complaints of chest pain or shortness of breath. No prior history of pancreatitis. No fever no chills. No diarrhea. No constipation. Denied any alcohol use. No prior history of hyperlipidemia. KUB x-ray showed normal acute abdomen. Chest x-ray showed normal chest. No change. Ultrasound gallbladder showed 1.4 cm cyst in the left lobe of the liver. No gallstones. Gallbladder not well evaluated due to patient size. No dilated ducts. Fatty infiltration of the liver. CT of the abdomen pelvis showed there is some minimal fat stranding and fluid in the left anterior pararenal space this could be related to some focal pancreatitis involving the tail of the pancreas. Mild fatty infiltration of the liver. Laboratory data showed sodium 135 potassium 4.2 BUN 18 and creatinine 0.74 blood sugar is 141 AST 102 ALT 205 and alk phos 151 Amylase 444 and lipase level 3436 Urinalysis showed cloudy with large leukocyte esterase and elevated WBCs. 05/06/2021 Patient is seen and evaluated this morning continues to have epigastric abdominal discomfort with episodes of nausea with no reported episodes of vomiting. Patient continues to be nothing by mouth occasional ice chips and states she is feeling hungry. Repeat labs for amylase lipase and liver functions drawn early this morning are currently still pending. Surgery is following with the possibility of cholecystectomy if symptoms persist and awaiting repeat labs. She has continued on IV hydration and will continue as patient is nothing by mouth. Patient reports minimal gas passing and no reports of bowel movements at this time. Patient is urinating with no difficulties and denies any frequency or pain with urination. Patient has been up and walking multiple times. Review of systems: Constitutional: No reports of fatigue, fever, or chills Cardiovascular: No reports of chest pain or palpitations Respiratory: No reports of shortness of breath or cough GI: Reports intermittent nausea, no reports of vomiting, or diarrhea, reports continued abdominal discomfort in the epigastric region : No reports of dysuria or retention Neurovascular: No reports of weakness or numbness All medications have been reviewed Objective - Vital Signs Vital signs: Vital Signs Temp 98.3 F 05/06/21 07:00 Pulse 83 05/06/21 07:00 Resp 16 05/06/21 07:00 BP 128/77 05/06/21 07:00 Pulse Ox 98 05/06/21 07:00 Intake & Output 05/05/21 05/06/21 05/06/21 18:59 06:59 18:59 Intake Total 0 Balance 0 Weight 106.594 kg Intake: Oral 0 Other: Voiding Method Toilet Toilet # Voids 2 2 - Exam Patient is sitting in the bed comfortably, no acute distress, awake alert and oriented.. HEENT: Normocephalic. Neck is supple. Pupils reactive. Nostrils clear. Oral cavity is moist. Neck reveals no JVD, carotid bruits, or thyromegaly. CHEST EXAMINATION: Trachea is central. Symmetrical expansion. Lung chawla clear to auscultation and percussion. CARDIAC: Normal S1, S2 with no gallops. No murmurs ABDOMEN: Soft. Epigastric tenderness noted on palpation. No guarding or rigidity. Bowel sounds normal. No organomegaly. No abdominal bruits. Extremities: reveal no edema. No clubbing or cyanosis Neurologically awake, alert, oriented x3 with well-coordinated movements. No focal deficits noted Skin: No rash or skin lesions. Psychiatric: Cooperative. Non-suicidal Musculoskeletal: No joint swelling or deformity. Normal range of motion. - Labs CBC & Chem 7: 05/06/21 04:39 05/05/21 12:17 Labs: Abnormal Lab Results - Last 24 Hours (Table) 05/05/21 05/06/21 Range/Units 12:17 04:39 RBC 3.91 L (4.10-5.20) X 10*6/uL Hgb 11.8 L (12.0-15.0) g/dL Hct 35.5 L (37.2-46.3) % Glucose 117 H (74-99) mg/dL AST 59 H (14-36) U/L ALT 139 H (4-34) U/L Total Protein 6.2 L (6.3-8.2) g/dL Amylase 331 H* (30-110) U/L Lipase 1944 H (23-300) U/L Microbiology - Last 24 Hours (Table) 05/04/21 23:05 Blood Culture - Preliminary Blood No Growth after 24 hours 05/04/21 23:20 Blood Culture - Preliminary Blood No Growth after 24 hours Assessment and Plan Assessment: Acute pancreatitis in the tail of the pancreas. Initial episode. Exact etiology is not known. Acute urinary tract infection Transaminitis Fatty infiltration of the liver Hypothyroidism Hypertension Asthma not in exacerbation Previous history of smoking Obesity with BMI 39.1 DVT prophylaxis with heparin subcu Full code Plan: Patient will continue on IV hydration and IV pain medications. Patient continues on IV Levaquin and will continue for now. Urine culture finalized showing normal mag. Continue nothing by mouth as patient continues to have epigastric abdominal discomfort with associated nausea and possibility of s urgery is being discussed. Patient denied any prior history of pancreatitis. Ultrasound abdominal and CT of the abdomen pelvis showed no evidence of ductal dilatation. Lipid panel was ordered along with repeat amylase lipase and liver functions and currently pending. General surgery is on board with discussion of possible cholecystectomy. Repeat labs ordered for the morning. Will continue to monitor closely.
[2021-05-06 20:01] LABS: African American GFR (CKD) 96.2 (60.0-200.0); Albumin 3.8 g/dL (3.80-4.90); Albumin/Globulin Ratio 1.65 (1.60-3.17); Anion Gap 13.2 mmol/L (4.00-12.00); BUN/Creat Ratio 11.25 Ratio (12.00-20.00); Calcium 8.5 mg/dL (8.7-10.3); Carbon Dioxide 20.8 mmol/L (21.6-31.8); Chol/HDL Ratio 4.42; Globulin 2.3 g/dL (1.6-3.3); Potassium 4.1 mmol/L (3.5-5.5); Total Bilirubin 0.5 mg/dL (0.2-1.2); Total Protein 6.1 g/dL (6.2-8.2)
[2021-05-06] MEDS: HYDROmorphone 0.5 MG/0.5 ML SYRINGE IVP PRN (20:13)
[2021-05-07] MEDS: LEVOFLOXACIN 750MG-D5W PMX 750 MG in DEXTROSE/WATER 1 150ML.BAG IVPB SCH (00:06)
[2021-05-07] MEDS: ONDANSETRON 4 MG/2 ML VIAL IVP PRN ×2 (02:11→20:39)
[2021-05-07] MEDS: LEVOTHYROXINE 50 MCG TAB PO SCH (02:11)
[2021-05-07] MEDS: SODIUM CHLORIDE 0.9% 1,000 ML IV SCH ×3 (02:22→18:26)
[2021-05-07 05:28] LABS: ALT 97 U/L (4-34); AST 43 U/L (14-36); African American GFR (CKD) >90 (>60 ml/min/1.73 sqM); Albumin 3.5 g/dL (3.5-5.0); Albumin/Globulin Ratio 1.4; Alkaline Phosphatase 129 U/L (38-126); Amylase 195 U/L (30-110); Anion Gap 9 mmol/L; Blood Urea Nitrogen 8 mg/dL (7-17); Calcium 8.7 mg/dL (8.4-10.2); Carbon Dioxide 23 mmol/L (22-30); Chloride 106 mmol/L (98-107); Globulin 2.5 g/dL; Glucose 98 mg/dL (74-99); Lipase 1087 U/L (23-300); Non-African American GFR(CKD) >90 (>60 ml/min/1.73 sqM); Potassium 4.1 mmol/L (3.5-5.1); Sodium 138 mmol/L (137-145); Total Bilirubin 0.7 mg/dL (0.2-1.3)
[2021-05-07] MEDS: LOSARTAN 25 MG TAB PO SCH (08:15)
[2021-05-07] MEDS: METOPROLOL TARTRATE 25 MG TAB PO SCH ×2 (08:15→20:39)
[2021-05-07] MEDS: CYANOCOBALAMIN 500 MCG TAB PO SCH ×2 (08:15→08:17)
--- NOTE | 2021-05-07 11:37 | P.PN ---
<Elsa Manzanares - Last Filed: 05/07/21 11:32> Subjective Progress Note Date: 05/07/21 CHIEF COMPLAINT: Abdominal pain HISTORY OF PRESENT ILLNESS: Patient admitted to the hospital with pancreatitis. Patient reporting decrease in her abdominal pain. Pain is still located in the same area epigastric and left upper quadrant. She's had no further vomiting since just after noon. She's had some occasional nausea. She's had diarrhea. Patient reports that she is starting to feel very hungry. Total bilirubin normal at 0.7 AST 43 ALT 97 alk phos 129 amylase 195 lipase has increased to 1087 from 285 PHYSICAL EXAM: VITAL SIGNS: Reviewed. GENERAL: Well-developed in no acute distress. HEENT: No sclera icterus. Extraocular movements grossly intact. Moist buccal mucosa. Head is atraumatic, normocephalic. ABDOMEN: Soft. Nondistended. Epigastric tenderness with tenderness in the left upper quadrant NEUROLOGIC: Alert and oriented. Cranial nerves II through XII grossly intact. ASSESSMENT: 1. Acute pancreatitis. Patient's liver enzymes elevated on admission suggesting biliary etiology and ultrasound showing possible debris in the gallbladder. PLAN: -Start patient on clear liquid diet and if she tolerates it will advance to a full liquid diet this afternoon. -Anticipate discharge possibly tomorrow if patient's pain is controlled and she is tolerating diet -Possible outpatient laparoscopic cholecystectomy -Patient will likely require laparoscopic cholecystectomy -Continue to monitor LFTs and amylase and lipase -Continue IV fluids -Continue pain medication as needed -Continue antiemetics as needed Physician [employer] Operator note has been reviewed by physician. Signing provider agrees with the documented findings, assessment, and plan of care. Objective - Vital Signs Vital signs: Vital Signs Temp 98.6 F 05/07/21 07:00 Pulse 83 05/07/21 07:00 Resp 16 05/07/21 07:00 BP 123/78 05/07/21 07:00 Pulse Ox 99 05/07/21 07:00 Intake & Output 05/06/21 05/07/21 05/07/21 18:59 06:59 18:59 Intake Total 0 Balance 0 Intake: Oral 0 Other: Voiding Method Toilet # Voids 1 2 # Bowel Movements 1 - Labs CBC & Chem 7: 05/06/21 04:39 05/07/21 04:40 Labs: Abnormal Lab Results - Last 24 Hours (Table) 05/06/21 05/07/21 Range/Units 04:39 04:40 Carbon Dioxide 20.8 L (21.6-31.8) mmol/L Anion Gap 13.20 H (4.00-12.00) mmol/L BUN/Creatinine Ratio 11.25 L (12.00-20.00) Ratio Calcium 8.5 L (8.7-10.3) mg/dL AST 41 H 43 H (13-35) U/L ALT 115 H 97 H (8-44) U/L Alkaline Phosphatase 129 H (38-126) U/L Total Protein 6.1 L 6.0 L (6.2-8.2) g/dL Amylase 242 H 195 H (23-121) U/L Lipase 285 H 1087 H (14-63) U/L Microbiology - Last 24 Hours (Table) 05/04/21 23:20 Blood Culture - Preliminary Blood No Growth after 48 hours 05/04/21 23:05 Blood Culture - Preliminary Blood No Growth after 48 hours 05/04/21 20:03 Urine Culture - Final Urine,Voided <Alfonso Horton - Last Filed: 05/07/21 15:09> Subjective As above. Patient's symptoms of nausea and vomiting have resolved. Her pain is improved. Today she was very hungry and starting to get frustrated with the lack of dietary intake. She was started on clears and tolerated. She was then advanced to full liquids. Will repeat labs tomorrow. If patient tolerates diet possible discharge tomorrow with outpatient cholecystectomy. Objective - Vital Signs Vital signs: Vital Signs Temp 99.5 F 05/07/21 15:00 Pulse 85 05/07/21 15:00 Resp 16 05/07/21 15:00 BP 131/81 05/07/21 15:00 Pulse Ox 97 05/07/21 15:00 Intake & Output 05/06/21 05/07/21 05/07/21 18:59 06:59 18:59 Intake Total 0 Balance 0 Intake: Oral 0 Other: Voiding Method Toilet # Voids 1 2 3 # Bowel Movements 1 - Labs CBC & Chem 7: 05/06/21 04:39 05/07/21 04:40 Labs: Abnormal Lab Results - Last 24 Hours (Table) 05/06/21 05/07/21 Range/Units 04:39 04:40 Carbon Dioxide 20.8 L (21.6-31.8) mmol/L Anion Gap 13.20 H (4.00-12.00) mmol/L BUN/Creatinine Ratio 11.25 L (12.00-20.00) Ratio Calcium 8.5 L (8.7-10.3) mg/dL AST 41 H 43 H (13-35) U/L ALT 115 H 97 H (8-44) U/L Alkaline Phosphatase 129 H (38-126) U/L Total Protein 6.1 L 6.0 L (6.2-8.2) g/dL Amylase 242 H 195 H (23-121) U/L Lipase 285 H 1087 H (14-63) U/L Microbiology - Last 24 Hours (Table) 05/04/21 23:20 Blood Culture - Preliminary Blood No Growth after 48 hours 05/04/21 23:05 Blood Culture - Preliminary Blood No Growth after 48 hours 05/04/21 20:03 Urine Culture - Final Urine,Voided
--- NOTE | 2021-05-07 14:04 | P.PN ---
Subjective Progress Note Date: 05/07/21 Patient is a 55-year-old female with a known history of hypertension, hypothyroidism, asthma and previous history of smoking stopped 20 years ago presents to ER with complaints of abdominal pain mainly in the epigastric region. Patient has been having symptoms for the past 5 to 6 days. Patient initially thought it is due to gastric reflux. Symptoms started after eating chicken Gyro. Associated with nausea and episode of vomiting twice at home. Patient otherwise denied any complaints of chest pain or shortness of breath. No prior history of pancreatitis. No fever no chills. No diarrhea. No constipation. Denied any alcohol use. No prior history of hyperlipidemia. KUB x-ray showed normal acute abdomen. Chest x-ray showed normal chest. No change. Ultrasound gallbladder showed 1.4 cm cyst in the left lobe of the liver. No gallstones. Gallbladder not well evaluated due to patient size. No dilated ducts. Fatty infiltration of the liver. CT of the abdomen pelvis showed there is some minimal fat stranding and fluid in the left anterior pararenal space this could be related to some focal pancreatitis involving the tail of the pancreas. Mild fatty infiltration of the liver. Laboratory data showed sodium 135 potassium 4.2 BUN 18 and creatinine 0.74 blood sugar is 141 AST 102 ALT 205 and alk phos 151 Amylase 444 and lipase level 3436 Urinalysis showed cloudy with large leukocyte esterase and elevated WBCs. 05/06/2021 Patient is seen and evaluated this morning continues to have epigastric abdominal discomfort with episodes of nausea with no reported episodes of vomiting. Patient continues to be nothing by mouth occasional ice chips and states she is feeling hungry. Repeat labs for amylase lipase and liver functions drawn early this morning are currently still pending. Surgery is following with the possibility of cholecystectomy if symptoms persist and awaiting repeat labs. She has continued on IV hydration and will continue as patient is nothing by mouth. Patient reports minimal gas passing and no reports of bowel movements at this time. Patient is urinating with no difficulties and denies any frequency or pain with urination. Patient has been up and walking multiple times. 05/07/2021 Patient is seen and evaluated in follow-up this morning started having diarrhea last night and continued abdominal discomfort although dull and improved from admission. Patient continues to be nothing by mouth and is extremely hungry and per surgery recommendations will start patient on a diet and slowly advance as tolerated and monitor for tolerance along with pain management. If diet as tolerated and pain is controlled patient will be observed for an additional 24 hours with possibility of discharged tomorrow and outpatient laparoscopic cholecystectomy with Dr. Horton. Sodium is 138 with a potassium of 4.1, creatinine is 0.62, ALT, AST slightly trending down, amylase is 195 which is trending down although lipase is elevated at 1087. Patient continues on IV hydration along with IV Levaquin and will continue for now. Will repeat labs in the morning and continue to monitor closely. Review of systems: Constitutional: No reports of fatigue, fever, or chills Cardiovascular: No reports of chest pain or palpitations Respiratory: No reports of shortness of breath or cough GI: no reports of nausea or vomiting, reports diarrhea since last night, report s continued abdominal discomfort in the epigastric region on palpation but improved overall : No reports of dysuria or retention Neurovascular: No reports of weakness or numbness All medications have been reviewed Objective - Vital Signs Vital signs: Vital Signs Temp 98.6 F 05/07/21 07:00 Pulse 83 05/07/21 07:00 Resp 16 05/07/21 07:00 BP 123/78 05/07/21 07:00 Pulse Ox 99 05/07/21 07:00 Intake & Output 05/06/21 05/07/21 05/07/21 18:59 06:59 18:59 Intake Total 0 Balance 0 Intake: Oral 0 Other: Voiding Method Toilet # Voids 1 2 # Bowel Movements 1 - Exam Patient is sitting in the bed comfortably, no acute distress, awake alert and oriented.. HEENT: Normocephalic. Neck is supple. Pupils reactive. Nostrils clear. Oral cavity is moist. Neck reveals no JVD, carotid bruits, or thyromegaly. CHEST EXAMINATION: Trachea is central. Symmetrical expansion. Lung chawla clear to auscultation and percussion. CARDIAC: Normal S1, S2 with no gallops. No murmurs ABDOMEN: Soft. Epigastric tenderness noted on palpation. No guarding or rigidity. Bowel sounds normal. No organomegaly. No abdominal bruits. Extremities: reveal no edema. No clubbing or cyanosis Neurologically awake, alert, oriented x3 with well-coordinated movements. No focal deficits noted Skin: No rash or skin lesions. Psychiatric: Cooperative. Non-suicidal Musculoskeletal: No joint swelling or deformity. Normal range of motion. - Labs CBC & Chem 7: 05/06/21 04:39 05/07/21 04:40 Labs: Abnormal Lab Results - Last 24 Hours (Table) 05/06/21 05/07/21 Range/Units 04:39 04:40 Carbon Dioxide 20.8 L (21.6-31.8) mmol/L Anion Gap 13.20 H (4.00-12.00) mmol/L BUN/Creatinine Ratio 11.25 L (12.00-20.00) Ratio Calcium 8.5 L (8.7-10.3) mg/dL AST 41 H 43 H (13-35) U/L ALT 115 H 97 H (8-44) U/L Alkaline Phosphatase 129 H (38-126) U/L Total Protein 6.1 L 6.0 L (6.2-8.2) g/dL Amylase 242 H 195 H (23-121) U/L Lipase 285 H 1087 H (14-63) U/L Microbiology - Last 24 Hours (Table) 05/04/21 23:20 Blood Culture - Preliminary Blood No Growth after 48 hours 05/04/21 23:05 Blood Culture - Preliminary Blood No Growth after 48 hours 05/04/21 20:03 Urine Culture - Final Urine,Voided Assessment and Plan Assessment: Acute pancreatitis in the tail of the pancreas. Initial episode. Exact etiology is not known. Acute urinary tract infection Transaminitis Fatty infiltration of the liver Hypothyroidism Hypertension Asthma not in exacerbation Previous history of smoking Obesity with BMI 39.1 DVT prophylaxis with heparin subcu Full code Plan: Patient will continue on IV hydration and IV pain medications. Patient continues on IV Levaquin and will continue for now. Urine culture finalized showing normal mag. Surgery following closely and plans are to start a clear liquid diet and if tolerates will advance at lunch or evening and monitor for tolerance and any further increased abdominal pain with continued observation overnight and possible discharge in the morning with discussion of possible outpatient cholecystectomy with Dr. Horton. Repeat labs ordered for the morning. Will continue to monitor closely. Possible discharge in 24 hours.
[2021-05-07] MEDS: HYDROmorphone 0.5 MG/0.5 ML SYRINGE IVP PRN ×2 (16:26→20:38)
[2021-05-08] MEDS: LEVOFLOXACIN 750MG-D5W PMX 750 MG in DEXTROSE/WATER 1 150ML.BAG IVPB SCH (00:29)
[2021-05-08] MEDS: LEVOTHYROXINE 50 MCG TAB PO SCH (02:54)
[2021-05-08] MEDS: ONDANSETRON 4 MG/2 ML VIAL IVP PRN ×2 (03:02→17:43)
[2021-05-08] MEDS: HYDROmorphone 0.5 MG/0.5 ML SYRINGE IVP PRN ×2 (03:02→20:09)
[2021-05-08] MEDS: SODIUM CHLORIDE 0.9% 1,000 ML IV SCH ×3 (03:09→18:10)
[2021-05-08 06:32] LABS: ALT 106 U/L (4-34); AST 61 U/L (14-36); African American GFR (CKD) >90 (>60 ml/min/1.73 sqM); Albumin 3.2 g/dL (3.5-5.0); Albumin/Globulin Ratio 1.4; Alkaline Phosphatase 129 U/L (38-126); Amylase 115 U/L (30-110); Anion Gap 4 mmol/L; Blood Urea Nitrogen 5 mg/dL (7-17); Calcium 8.3 mg/dL (8.4-10.2); Carbon Dioxide 28 mmol/L (22-30); Chloride 105 mmol/L (98-107); Globulin 2.3 g/dL; Glucose 117 mg/dL (74-99); Lipase 772 U/L (23-300); Non-African American GFR(CKD) >90 (>60 ml/min/1.73 sqM); Potassium 4.1 mmol/L (3.5-5.1); Sodium 137 mmol/L (137-145); Total Bilirubin 0.5 mg/dL (0.2-1.3); Total Protein 5.5 g/dL (6.3-8.2)
[2021-05-08] MEDS: CYANOCOBALAMIN 500 MCG TAB PO SCH (08:09)
[2021-05-08] MEDS: LOSARTAN 25 MG TAB PO SCH (08:09)
[2021-05-08] MEDS: METOPROLOL TARTRATE 25 MG TAB PO SCH ×2 (08:09→20:09)
--- NOTE | 2021-05-08 09:17 | P.PN ---
Subjective Progress Note Date: 05/08/21 Principal diagnosis: Gallstone pancreatitis Patient said she had a bit of a rough night. She was nauseated. No vomiting. Pain was slightly increased in the left upper quadrant extending to the left flank. Feels better now. Asking if she is going home today. Amylase and lip ase are improved today. Objective - Vital Signs Vital signs: Vital Signs Temp 97.8 F 05/08/21 07:00 Pulse 80 05/08/21 07:00 Resp 16 05/08/21 07:58 BP 115/78 05/08/21 07:00 Pulse Ox 97 05/08/21 07:00 Intake & Output 05/07/21 05/08/21 05/08/21 18:59 06:59 18:59 Intake Total 100 Balance 100 Intake: Oral 100 Other: Voiding Method Toilet # Voids 3 2 - Exam Abdomen: Soft, mild epigastric left upper quadrant tenderness - Labs CBC & Chem 7: 05/06/21 04:39 05/08/21 06:04 Labs: Abnormal Lab Results - Last 24 Hours (Table) 05/08/21 Range/Units 06:04 BUN 5 L (7-17) mg/dL Glucose 117 H (74-99) mg/dL Calcium 8.3 L (8.4-10.2) mg/dL AST 61 H (14-36) U/L ALT 106 H (4-34) U/L Alkaline Phosphatase 129 H (38-126) U/L Total Protein 5.5 L (6.3-8.2) g/dL Albumin 3.2 L (3.5-5.0) g/dL Amylase 115 H (30-110) U/L Lipase 772 H (23-300) U/L Microbiology - Last 24 Hours (Table) 05/04/21 23:05 Blood Culture - Preliminary Blood No Growth after 72 hours 05/04/21 23:20 Blood Culture - Preliminary Blood No Growth after 72 hours Assessment and Plan (1) Gallstone pancreatitis Narrative/Plan: Patient doing about the same today. Discuss clinical scenario again with the patient. Continue full liquids. Try to avoid any significant fatty foods. Recheck labs tomorrow. Ambulate. Possible need for MRCP discussed given the patient's persistent mild transaminitis. Current Visit: Yes Status: Acute Code(s): K85.10 - BILIARY ACUTE PANCREATITI S WITHOUT NECROSIS OR INFECTION SNOMED Code(s): 40329335
[2021-05-09] MEDS: LEVOFLOXACIN 750MG-D5W PMX 750 MG in DEXTROSE/WATER 1 150ML.BAG IVPB SCH (00:45)
[2021-05-09] MEDS: LEVOTHYROXINE 50 MCG TAB PO SCH (02:42)
[2021-05-09] MEDS: SODIUM CHLORIDE 0.9% 1,000 ML IV SCH (02:45)
[2021-05-09 07:35] VITALS: BP 130/83; PULSE 73; TEMP 98.3
[2021-05-09] MEDS: CYANOCOBALAMIN 500 MCG TAB PO SCH (08:09)
[2021-05-09] MEDS: METOPROLOL TARTRATE 25 MG TAB PO SCH (08:09)
[2021-05-09] MEDS: LOSARTAN 25 MG TAB PO SCH (08:09)
[2021-05-09 10:19] LABS: Basophils # (A) 0.02 X 10*3/uL (0.00-0.10); Basophils % (A) 0.5 %; Eosinophils # (A) 0.14 X 10*3/uL (0.04-0.35); Eosinophils % (A) 3.4 %; HCT 33.6 % (37.2-46.3); HGB 11.4 g/dL (12.0-15.0); Lymphocytes # (A) 1.01 X 10*3/uL (0.90-5.00); Lymphocytes % (A) 24.6 %; MCH 30.7 pg (27.0-32.0); MCHC 33.9 g/dL (32.0-37.0); MCV 90.6 fL (80.0-97.0); Mean Platelet Volume 9.9 fL (9.5-12.2); Monocytes # (A) 0.46 X 10*3/uL (0.20-1.00); Monocytes % (A) 11.2 %; Neutrophils # (A) 2.47 X 10*3/uL (1.80-7.70); Neutrophils % (A) 60.1 %; Platelet Count 255 X 10*3/uL (140-440); RBC 3.71 X 10*6/uL (4.10-5.20); RDW 12.1 % (11.5-14.5); WBC 4.11 X 10*3/uL (4.50-10.00)
[2021-05-09 10:54] LABS: Albumin 3.6 g/dL (3.80-4.90); Albumin/Globulin Ratio 1.64 (1.60-3.17); Anion Gap 6.3 mmol/L (4.00-12.00); BUN/Creat Ratio 7.14 Ratio (12.00-20.00); Calcium 8.4 mg/dL (8.7-10.3); Carbon Dioxide 28.7 mmol/L (21.6-31.8); Globulin 2.2 g/dL (1.6-3.3); Non-African American GFR(CKD) 97.5 (60.0-200.0); Potassium 4.1 mmol/L (3.5-5.5); Total Bilirubin 0.4 mg/dL (0.2-1.2); Total Protein 5.8 g/dL (6.2-8.2)
--- NOTE | 2021-05-09 11:05 | P.PN ---
Subjective Progress Note Date: 05/09/21 Principal diagnosis: Gallstone pancreatitis Patient doing better today. Pain is less and she has no nausea. Labs are improved. She would like to go home. Objective - Vital Signs Vital signs: Vital Signs Temp 98.3 F 05/09/21 07:00 Pulse 73 05/09/21 07:00 Resp 16 05/09/21 07:00 BP 130/83 05/09/21 07:00 Pulse Ox 97 05/09/21 07:00 Intake & Output 05/08/21 05/09/21 05/09/21 18:59 06:59 18:59 Intake Total 600 750 100 Output Total 1 Balance 600 749 100 Intake: Intake, IV Titration 750 Amount Levofloxacin 750Mg-D5w 750 Pmx 750 mg In Dextrose/ Water 1 150ml.bag @ 100 mls/hr IVPB DAILY@0000 [facility] Rx#:[id number] Oral 600 100 Output: Urine 1 Other: Voiding Method Toilet Toilet # Voids 1 # Bowel Movements 1 - Exam Abdomen: Soft, nondistended, minimal epigastric tenderness - Labs CBC & Chem 7: 05/09/21 06:30 05/09/21 06:30 Labs: Abnormal Lab Results - Last 24 Hours (Table) 05/09/21 05/09/21 Range/Units 06:30 06:30 WBC 4.11 L (4.50-10.00) X 10*3/uL RBC 3.71 L (4.10-5.20) X 10*6/uL Hgb 11.4 L (12.0-15.0) g/dL Hct 33.6 L (37.2-46.3) % BUN 5.0 L (9.0-27.0) mg/dL BUN/Creatinine Ratio 7.14 L (12.00-20.00) Ratio Glucose 116 H (70-110) mg/dL Calcium 8.4 L (8.7-10.3) mg/dL AST 57 H (13-35) U/L ALT 117 H (8-44) U/L Alkaline Phosphatase 155 H (41-126) U/L Total Protein 5.8 L (6.2-8.2) g/dL Albumin 3.60 L (3.80-4.90) g/dL Lipase 180 H (14-63) U/L Microbiology - Last 24 Hours (Table) 05/04/21 23:05 Blood Culture - Preliminary Blood No Growth after 96 hours 05/04/21 23:20 Blood Culture - Preliminary Blood No Growth after 96 hours Assessment and Plan (1) Gallstone pancreatitis Narrative/Plan: Patient doing well at this time. May discharge. Palpation CMP level to be drawn. Follow-up in the office later this week. Current Visit: Yes Status: Acute Code(s): K85.10 - BILIARY ACUTE PANCREATITIS WITHOUT NECROSIS OR INFECTION SNOMED Code(s): 34782319
== END 2021-05-09 12:52 | disposition home or self-care (01) | DRG 439 ==
LOC: EC 19:22 → 6NMEDSUR 22:15 → OBSVTOIN 05-07 19:54
PROVIDERS: ADMIT Hospitalist; ATTEND Hospitalist
DX: K85.10 Biliary acute pancreatitis without necrosis or infection (principal); N39.0 Urinary tract infection, site not specified; I10 Essential (primary) hypertension; E03.9 Hypothyroidism, unspecified; E66.9 Obesity, unspecified; J45.909 Unspecified asthma, uncomplicated; K21.9 Gastro-esophageal reflux disease without esophagitis; K76.0 Fatty (change of) liver, not elsewhere classified; K76.89 Other specified diseases of liver; Z68.39 Body mass index [BMI] 39.0-39.9, adult; Z79.890 Hormone replacement therapy; Z79.899 Other long term (current) drug therapy; Z87.891 Personal history of nicotine dependence; Z88.0 Allergy status to penicillin; Z90.710 Acquired absence of both cervix and uterus
CPT/HCPCS: 36415; 71046; 74018; 74177; 76705; 80053; 80061; 81001; 82150; 83605; 83690; 84484; 85025; 85610; 85730; 87040; 87086; 93005

== ENCOUNTER 2021-05-13 15:32 | Observation (INO) | payer OTHER ==
[2021-05-13] MEDS ORDERED: SODIUM CHLORIDE 0.9% 1,000 ML IV STA (15:52)
[2021-05-13] MEDS ORDERED: diphenhydrAMINE 50 MG/ML 1 ML VIAL IVP STA (15:52)
[2021-05-13] MEDS ORDERED: ONDANSETRON 4 MG/2 ML VIAL IVP STA (15:52)
[2021-05-13] MEDS ORDERED: FAMOTIDINE 20 MG/2 ML VIAL IV STA (15:53)
[2021-05-13 16:23] LABS: Basophils # (A) 0.1 k/uL (0-0.2); Basophils % (A) 1 %; Eosinophils # (A) 0.2 k/uL (0-0.7); Eosinophils % (A) 4 %; HCT 39.3 % (34.0-46.0); HGB 13.7 gm/dL (11.4-16.0); Lymphocytes # (A) 1.5 k/uL (1.0-4.8); Lymphocytes % (A) 29 %; MCH 31.4 pg (25.0-35.0); MCHC 34.9 g/dL (31.0-37.0); MCV 89.8 fL (80.0-100.0); Mean Platelet Volume 7.1; Monocytes # (A) 0.3 k/uL (0-1.0); Monocytes % (A) 7 %; Neutrophils # (A) 2.9 k/uL (1.3-7.7); Neutrophils % (A) 58 %; Platelet Count 373 k/uL (150-450); RBC 4.38 m/uL (3.80-5.40); RDW 12.2 % (11.5-15.5); WBC 5.1 k/uL (3.8-10.6)
[2021-05-13 16:34] LABS: ALT 106 U/L (4-34); AST 57 U/L (14-36); African American GFR (CKD) >90 (>60 ml/min/1.73 sqM); Albumin 4.5 g/dL (3.5-5.0); Alkaline Phosphatase 228 U/L (38-126); Anion Gap 8 mmol/L; Blood Urea Nitrogen 15 mg/dL (7-17); Calcium 9.7 mg/dL (8.4-10.2); Carbon Dioxide 27 mmol/L (22-30); Chloride 102 mmol/L (98-107); Glucose 186 mg/dL (74-99); Lipase 724 U/L (23-300); Non-African American GFR(CKD) 90 (>60 ml/min/1.73 sqM); Potassium 4.4 mmol/L (3.5-5.1); Sodium 137 mmol/L (137-145); Total Bilirubin 0.2 mg/dL (0.2-1.3); Total Protein 7.3 g/dL (6.3-8.2)
[2021-05-13 16:40] LABS: INR 0.9 (<1.2); Prothrombin Time 9.6 sec (9.0-12.0)
[2021-05-13] MEDS ORDERED: MORPHINE SULFATE 4 MG/ML SYRINGE IVP STA (16:40)
--- NOTE | 2021-05-13 16:47 | ED ---
General Adult HPI - General Chief complaint: Abdominal Pain Stated complaint: Revisit/Pancreatitis Time Seen by Provider: 05/13/21 15:44 Source: patient, RN notes reviewed, old records reviewed Mode of arrival: ambulatory Limitations: no limitations - History of Present Illness Initial comments: Patient is a 56 year old female with past medical history remarkable for recently diagnosed pancreatitis on Monday, asthma, thyroid disorder, hypertension with a hysterectomy who presents emergency Department complaining of continued abdominal pain since Monday. She states that on Monday she was diagnosed with acute pink otitis likely secondary to gallstone pancreatitis. She states that the recommended that she be admitted to the hospital for pain management but she refused insatiable come back if he gets worse. She states it is not improved since that time. She states that she is having continued epigastric as well as some mild left upper quadrant abdominal pain which is unchanged since Monday. She describes it as 9 or 10 out of 10 in severity and sharp achy sensation. She states it does not radiate. She denies any diarrhea, dysuria, hematuria, hematochezia, melena. She states she is nauseous and has nonbilious nonbloody emesis occasionally. She is only tolerating ice chips for by mouth intake. She denies any chest pain, shortness breath, fevers, chills, cough. She states she has vaccinated for COVID-19. She otherwise has no acute complaints at this time. Patient presents emergency Department over continued abdominal pain and failed outpatient treatment of her pancreatitis. Patient was sent by her surgeon, Dr. Horton for admission. - Related Data Home Medications Medication Instructions Recorded Confirmed Cyanocobalamin (Vitamin B-12) 1,000 mcg PO DAILY 05/04/21 05/13/21 [Vitamin B-12] Levothyroxine Sodium [Euthyrox] 50 mcg PO DAILY@0230 05/04/21 05/13/21 Metoprolol Tartrate [Lopressor] 25 mg PO BID 05/04/21 05/13/21 Previous Rx's Medication Instructions Recorded Losartan [Cozaar] 25 mg PO DAILY #30 tab 05/15/16 Allergies Allergy/AdvReac Type Severity Reaction Status Date / Time codeine Allergy Rash/Hives Verified 05/13/21 16:45 meperidine HCl [From Demerol] Allergy Rash/Hives Verified 05/13/21 16:45 Penicillins Allergy Rash/Hives Verified 05/13/21 16:45 acetaminophen [From Vicodin] AdvReac Nausea & Verified 05/13/21 16:45 Vomiting hydrocodone bitartrate AdvReac Nausea & Verified 05/13/21 16:45 [From Vicodin] Vomiting Review of Systems ROS Statement: Those systems with pertinent positive or pertinent negative responses have been documented in the HPI. ROS Other: All systems not noted in ROS Statement are negative. Past Medical History Past Medical History: Asthma, Hypertension, Thyroid Disorder Additional Past Medical History / Comment(s): hypothyroid History of Any Multi-Drug Resistant Organisms: None Reported Past Surgical History: Section, Hysterectomy, Orthopedic Surgery Additional Past Surgical History / Comment(s): ORIF LT ELBOW. RT EAR KELOID REMOVED Past Anesthesia/Blood Transfusion Reactions: No Reported Reaction Past Psychological History: No Psychological Hx Reported Smoking Status: Former smoker Past Alcohol Use History: None Reported Past Drug Use History: None Reported - Past Family History Mother History Unknown: Yes Additional Family Medical History / Comment(s): PT ADOPTED FAMILY HX UNKNOWN General Exam Limitations: no limitations Course Vital Signs 05/13/21 05/13/21 05/13/21 15:35 18:18 20:00 Temperature 98.3 F 99 F Pulse Rate 83 87 Pulse Rate [ 65 Pulse Oximetery ] Respiratory 16 18 18 Rate Blood Pressure 136/73 153/77 Blood Pressure 147/78 [Left Arm] O2 Sat by Pulse 97 99 100 Oximetry Medical Decision Making - Medical Decision Making Based on the patient's presentation and physical exam, there is concern for p ossible symptomatically to cholelithiasis and is being missed on imaging as well as ultrasound. Patient had a recent negative CT abdomen and pelvis. This probably was causing her acute pancreatitis acute flaring up. Therefore we will repeat abdominal laboratories studies including CMP. Cannot rule out the possibility of atypical ACS at this time, and therefore we will also obtain a troponin and EKG. Patient will be symptomatically treated with a 1 L fluid bolus as well as IV Benadryl, Pepcid, morphine, Zofran. She was in agreement this plan. She likely will be admitted. Patient's auditory studies were remarkable for a normal white blood cell count. Patient is elevated LFTs with an AST of 57, ALT of 106. Alk phos is elevated 228. Lipase is elevated to 744, which is higher than earlier in the week. Urinalysis is unremarkable. She is not . Remainder of her laboratory studies are unremarkable. EKG showed no signs of acute ischemia. Troponin is negative. Chest x-ray shows no acute cardio pulmonary process. I did add on the right upper quadrant ultrasound which showed no evidence of clarify cysts or acute cholecystitis. CBD is not visible. There is hepatic steatosis. I discussed the patient's imaging and laboratory studies with the patient. She states that her pain is improved when she is time by mouth intake. However it does talk with her surgeon, Dr. Horton who requested that she be admitted to the hospital. He also requested that I place an order for an MRCP which I will do. She cannot obtain an MRCP for multiple weeks on an outpatient basis and she is continuing to have symptomatic abdominal pain. Patient be admitted under Dr. Horton in serious condition. We'll consult Dr. Voss of medicine for medical management, as he evaluated her previously. - Lab Data Result diagrams: 05/13/21 16:12 05/13/21 16:12 Lab Results 05/13/21 05/13/21 05/13/21 Range/Units 16:12 16:12 16:12 WBC 5.1 (3.8-10.6) k/uL RBC 4.38 (3.80-5.40) m/uL Hgb 13.7 (11.4-16.0) gm/dL Hct 39.3 (34.0-46.0) % MCV 89.8 (80.0-100.0) fL MCH 31.4 (25.0-35.0) pg MCHC 34.9 (31.0-37.0) g/dL RDW 12.2 (11.5-15.5) % Plt Count 373 (150-450) k/uL MPV 7.1 Neutrophils % 58 % Lymphocytes % 29 % Monocytes % 7 % Eosinophils % 4 % Basophils % 1 % Neutrophils # 2.9 (1.3-7.7) k/uL Lymphocytes # 1.5 (1.0-4.8) k/uL Monocytes # 0.3 (0-1.0) k/uL Eosinophils # 0.2 (0-0.7) k/uL Basophils # 0.1 (0-0.2) k/uL PT (9.0-12.0) sec INR (<1.2) APTT (22.0-30.0) sec Sodium 137 (137-145) mmol/L Potassium 4.4 (3.5-5.1) mmol/L Chloride 102 (98-107) mmol/L Carbon Dioxide 27 (22-30) mmol/L Anion Gap 8 mmol/L BUN 15 (7-17) mg/dL Creatinine 0.75 (0.52-1.04) mg/dL Est GFR (CKD-EPI)AfAm >90 (>60 ml/min/1.73 sqM) Est GFR (CKD-EPI)NonAf 90 (>60 ml/min/1.73 sqM) Glucose 186 H (74-99) mg/dL Calcium 9.7 (8.4-10.2) mg/dL Total Bilirubin 0.2 (0.2-1.3) mg/dL AST 57 H (14-36) U/L ALT 106 H (4-34) U/L Alkaline Phosphatase 228 H (38-126) U/L Troponin I (0.000-0.034) ng/mL Total Protein 7.3 (6.3-8.2) g/dL Albumin 4.5 (3.5-5.0) g/dL Lipase 724 H (23-300) U/L Urine Color Light Yellow Urine Appearance Clear (Clear) Urine pH 6.5 (5.0-8.0) Ur Specific [place] 1.008 (1.001-1.035) Urine Protein Negative (Negative) Urine Glucose (UA) Negative (Negative) Urine Ketones Negative (Negative) Urine Blood Negative (Negative) Urine Nitrite Negative (Negative) Urine Bilirubin Negative (Negative) Urine Urobilinogen <2.0 (<2.0) mg/dL Ur Leukocyte Esterase Negative (Negative) Urine HCG, Qual (Not Detectd) 05/13/21 05/13/21 05/13/21 Range/Units 16:12 16:12 17:10 WBC (3.8-10.6) k/uL RBC (3.80-5.40) m/uL Hgb (11.4-16.0) gm/dL Hct (34.0-46.0) % MCV (80.0-100.0) fL MCH (25.0-35.0) pg MCHC (31.0-37.0) g/dL RDW (11.5-15.5) % Plt Count (150-450) k/uL MPV Neutrophils % % Lymphocytes % % Monocytes % % Eosinophils % % Basophils % % Neutrophils # (1.3-7.7) k/uL Lymphocytes # (1.0-4.8) k/uL Monocytes # (0-1.0) k/uL Eosinophils # (0-0.7) k/uL Basophils # (0-0.2) k/uL PT 9.6 (9.0-12.0) sec INR 0.9 (<1.2) APTT 21.7 L (22.0-30.0) sec Sodium (137-145) mmol/L Potassium (3.5-5.1) mmol/L Chloride (98-107) mmol/L Carbon Dioxide (22-30) mmol/L Anion Gap mmol/L BUN (7-17) mg/dL Creatinine (0.52-1.04) mg/dL Est GFR (CKD-EPI)AfAm (>60 ml/min/1.73 sqM) Est GFR (CKD-EPI)NonAf (>60 ml/min/1.73 sqM) Glucose (74-99) mg/dL Calcium (8.4-10.2) mg/dL Total Bilirubin (0.2-1.3) mg/dL AST (14-36) U/L ALT (4-34) U/L Alkaline Phosphatase (38-126) U/L Troponin I <0.012 (0.000-0.034) ng/mL Total Protein (6.3-8.2) g/dL Albumin (3.5-5.0) g/dL Lipase (23-300) U/L Urine Color Urine Appearance (Clear) Urine pH (5.0-8.0) Ur Specific [place] (1.001-1.035) Urine Protein (Negative) Urine Glucose (UA) (Negative) Urine Ketones (Negative) Urine Blood (Negative) Urine Nitrite (Negative) Urine Bilirubin (Negative) Urine Urobilinogen (<2.0) mg/dL Ur Leukocyte Esterase (Negative) Urine HCG, Qual Not Detected (Not Detectd) - EKG Data -: EKG Interpreted by Me EKG Comments: 12-lead Electrocardiogram Interpretation Note EKG was reviewed and interpreted by myself. 12-lead ECG performed at 1600 is i nterpreted by me as revealing normal sinus rhythm at a rate of 78 beats per minute. [place] is normal. [place] interval is 138 ms, QRS duration 60 ms, QTc is 453 ms.. There were no ST or T wave abnormalities to suggest myocardial ischemia or injury. R wave progression across the precordium was satisfactory. By my interpretation this EKG is non-diagnostic for acute ischemia. Disposition Clinical Impression: Transaminitis, Pancreatitis, Abdominal pain, Nausea and vomiting Disposition: ADMITTED IP TO THIS HOSP Condition: Serious
--- NOTE | 2021-05-13 16:48 | XR ---
EXAMINATION TYPE: XR chest 1V portable DATE OF EXAM: 05/13/2021 Chest x-ray May 04, 2021 HISTORY: Chest and abdominal pain and pancreatitis. Swelling. TECHNIQUE: Single AP portable frontal upright view of the chest is obtained. FINDINGS: There is no suspicious new focal air space opacity, pleural effusion, or pneumothorax seen . The cardiac silhouette size remains within normal limits. The osseous structures are intact. Ove rlying EKG leads redemonstrated. IMPRESSION: No acute process. No significant change from prior.
[2021-05-13 17:04] LABS: Partial Thromboplastin Time 21.7 sec (22.0-30.0)
[2021-05-13 17:17] LABS: Appearance,Urine Clear (Clear); Bilirubin,Urine Negative (Negative); Blood,Urine Negative (Negative); Color,Urine Light Yellow; Glucose,Urine (UA) Negative (Negative); Ketones,Urine Negative (Negative); Leukocyte Esterase,Urine Negative (Negative); Nitrite,Urine Negative (Negative); PH, Urine 6.5 (5.0-8.0); Protein,Urine Negative (Negative); Specific Gravity,Urine 1.008 (1.001-1.035); Urobilinogen,Urine <2.0 mg/dL (<2.0)
[2021-05-13] MEDS ORDERED: SODIUM CHLORIDE 0.9% 1,000 ML IV ONE (17:50)
[2021-05-13] MEDS ORDERED: ONDANSETRON 4 MG/2 ML VIAL IVP PRN (17:50)
[2021-05-13] MEDS ORDERED: NALOXONE 0.4 MG/ML 1 ML VIAL IV PRN (17:50)
[2021-05-13] MEDS ORDERED: MORPHINE SULFATE 4 MG/ML SYRINGE IV PRN (17:50)
[2021-05-13] MEDS ORDERED: KETOROLAC 15 MG/ML 1 ML VIAL IVP PRN (17:50)
--- NOTE | 2021-05-13 19:49 | US ---
EXAMINATION TYPE: US gallbladder DATE OF EXAM: 05/13/2021 COMPARISON: Gallbladder ultrasound dated 05/04/2021 CLINICAL HISTORY: Concern for stone. EXAM MEASUREMENTS: Liver Length: 17.5 cm Gallbladder Wall: 0.29 cm CBD: Not seen. Right Kidney: 11.8 x 6.1 x 4.2 cm Limited due to gas and patient body habitus. Pancreas: Suboptimal evaluation due to bowel gas. No obvious fluid collection around the pancreas. Liver: Hypoattenuating lesion in the left hepatic lobe measures: 1.2 x 1.1 x 1.0 cm. Heterogeneous he patic parenchyma with increased echogenicity. Gallbladder: Possible internal echoes versus artifact seen. No definite stones seen at this time. Evidence for sonographic Pablo's sign: No Right Kidney: No hydronephrosis or masses seen Circuit Court Judge comment: Hypoattenuating avascular soft tissue anterior to the liver at the midline with s cattered hyperechoic foci measures measures 8.8 x 6.5 x 1.8 cm. Limited evaluation due to patient's body habitus bowel gas. IMPRESSION: 1. No sonographic evidence of cholelithiasis or acute cholecystitis. CBD not well seen. 2. Hepatic steatosis. 3. Soft tissue density anterior to the liver likely represents normal soft tissue, the need for a con trast enhanced CT of the abdomen only should be determined on clinical basis. 4. Hepatic cyst, 1.2 cm, similar to prior study.
[2021-05-13] MEDS: METOPROLOL TARTRATE 25 MG TAB PO SCH (23:00)
[2021-05-13] MEDS: FAMOTIDINE 20 MG TAB PO SCH (23:00)
[2021-05-14] MEDS: LEVOTHYROXINE 50 MCG TAB PO SCH (03:07)
[2021-05-14] MEDS: LOSARTAN 25 MG TAB PO SCH (09:36)
[2021-05-14] MEDS: FAMOTIDINE 20 MG TAB PO SCH ×2 (09:36→19:17)
[2021-05-14] MEDS: METOPROLOL TARTRATE 25 MG TAB PO SCH ×2 (09:36→19:17)
[2021-05-14 10:25] LABS: Basophils # (A) 0.03 X 10*3/uL (0.00-0.10); Basophils % (A) 0.8 %; Eosinophils # (A) 0.18 X 10*3/uL (0.04-0.35); Eosinophils % (A) 4.9 %; HCT 35.8 % (37.2-46.3); HGB 11.8 g/dL (12.0-15.0); Lymphocytes # (A) 1.33 X 10*3/uL (0.90-5.00); MCH 30.2 pg (27.0-32.0); MCV 91.6 fL (80.0-97.0); Mean Platelet Volume 9.7 fL (9.5-12.2); Monocytes # (A) 0.38 X 10*3/uL (0.20-1.00); Monocytes % (A) 10.3 %; Neutrophils # (A) 1.76 X 10*3/uL (1.80-7.70); Neutrophils % (A) 47.7 %; Platelet Count 290 X 10*3/uL (140-440); RBC 3.91 X 10*6/uL (4.10-5.20); RDW 12.2 % (11.5-14.5); WBC 3.69 X 10*3/uL (4.50-10.00)
[2021-05-14 10:30] VITALS: BMI 37.3
--- NOTE | 2021-05-14 12:46 | P.GSHP ---
<Elsa Manzanares - Last Filed: 05/14/21 12:33> History of Present Illness H&P Date: 05/14/21 CHIEF COMPLAINT: Abdominal pain HISTORY OF PRESENT ILLNESS: This is a 56-year-old female with history of pancreatitis, hypertension, asthma, hypothyroidism and former smoker. Past surgical history includes and hysterectomy. She was just recently hospitalized on 05/05/2021 for pancreatitis likely due to suspected gallstones. Her gallbladder ultrasound had shown debris in the gallbladder. Patient was to have further workup completed outpatient. However, patient reports that she's been having pain in the epigastric left upper quadrant and now right upper quadrant. Patient relates that the pain does get up to a 10 out of 10 in severity. She has been nauseous and has had occasional episodes of vomiting. She does have elevated LFTs and mildly elevated lipase. Patient mentioned to the hospital with abdominal pain and pancreatitis. PAST MEDICAL HISTORY: See list. PAST SURGICAL HISTORY: See list. MEDICATIONS: See list. ALLERGIES: See list. SOCIAL HISTORY: No illicit drug use. REVIEW OF SYSTEMS: CONSTITUTIONAL: Denies fever or chills. HEENT: Denies blurred vision, vision changes, or eye pain. Denies hemoptysis CARDIOVASCULAR: Denies chest pain or pressure. RESPIRATORY: No shortness of breath. GASTROINTESTINAL: See HPI for pertinent findings HEMATOLOGIC: Denies bleeding disorders. GENITOURINARY: Denies any blood in urine or increased urinary frequency. SKIN: Denies pruitis. Denies rash. PHYSICAL EXAM: VITAL SIGNS: Reviewed GENERAL: Well-developed in no acute distress. HEENT: No sclera icterus. Extraocular movements grossly intact. Moist buccal mucosa. Head is atraumatic, normocephalic. No nasal drainage. ABDOMEN: Soft. Nondistended. Tenderness with palpation of the right upper quadrant epigastric area and left upper quadrant NEUROLOGIC: Alert and oriented. Cranial nerves II through XII grossly intact. LABORATORY DATA: WBC 3.69 hemoglobin 11.8 IMAGING: Ultrasound shows no evidence of cholelithiasis or acute cholecystitis. CBD not well seen. Hepatic steatosis. Soft tissue density anterior to the liver likely represent normal soft tissue AST 57 ALT 106 alk phos 228 lipase 724 repeat liver enzymes and lipase level pending Urinalysis negative ASSESSMENT: 1. Abdominal pain 2. Acute pancreatitis with possible gallstone pancreatitis 3. Elevated LFTs PLAN: -Patient scheduled for MRCP today -Further recommendations forthcoming per surgeon -Continue clear liquid diet -Continue IV fluid -Continue pain medication as needed -Continue antiemetics as needed -Repeat LFTs, lipase and amylase tomorrow -GI prophylaxis Pepcid and DVT prophylaxis subcu heparin Physician Collection Officer note has been reviewed by physician. Signing provider agrees with the documented findings, assessment, and plan of care. Past Medical History Past Medical History: Asthma, Hypertension, Thyroid Disorder Additional Past Medical History / Comment(s): hypothyroid History of Any Multi-Drug Resistant Organisms: None Reported Past Surgical History: Section, Hysterectomy, Orthopedic Surgery Additional Past Surgical History / Comment(s): ORIF LT ELBOW. RT EAR KELOID REMOVED Past Anesthesia/Blood Transfusion Reactions: No Reported Reaction Past Psychological History: No Psychological Hx Reported Smoking Status: Former smoker Past Alcohol Use History: None Reported Past Drug Use History: None Reported - Past Family History Mother History Unknown: Yes Additional Family Medical History / Comment(s): PT ADOPTED FAMILY HX UNKNOWN Medications and Allergies Home Medications Medication Instructions Recorded Confirmed Type Losartan [Cozaar] 25 mg PO DAILY #30 tab 05/15/16 05/13/21 Rx Cyanocobalamin (Vitamin B-12) 1,000 mcg PO DAILY 05/04/21 05/13/21 History [Vitamin B-12] Levothyroxine Sodium [Euthyrox] 50 mcg PO DAILY@0230 05/04/21 05/13/21 History Metoprolol Tartrate [Lopressor] 25 mg PO BID 05/04/21 05/13/21 History Allergies Allergy/AdvReac Type Severity Reaction Status Date / Time codeine Allergy Rash/Hives Verified 05/13/21 16:45 meperidine HCl [From Demerol] Allergy Rash/Hives Verified 05/13/21 16:45 Penicillins Allergy Rash/Hives Verified 05/13/21 16:45 acetaminophen [From Vicodin] AdvReac Nausea & Verified 05/13/21 16:45 Vomiting hydrocodone bitartrate AdvReac Nausea & Verified 05/13/21 16:45 [From Vicodin] Vomiting Surgical - Exam Vital Signs Temp Pulse Resp BP Pulse Ox 98.3 F 83 16 136/73 97 05/13/21 15:35 05/13/21 15:35 05/13/21 15:35 05/13/21 15:35 05/13/21 15:35 Results - Labs 05/14/21 05:50 05/13/21 16:12 Abnormal Lab Results - Last 24 Hours (Table) 05/13/21 05/13/21 05/14/21 Range/Units 16:12 16:12 05:50 WBC 3.69 L (4.50-10.00) X 10*3/uL RBC 3.91 L (4.10-5.20) X 10*6/uL Hgb 11.8 L (12.0-15.0) g/dL Hct 35.8 L (37.2-46.3) % Neutrophils # 1.76 L (1.80-7.70) X 10*3/uL APTT 21.7 L (22.0-30.0) sec Glucose 186 H (74-99) mg/dL AST 57 H (14-36) U/L ALT 106 H (4-34) U/L Alkaline Phosphatase 228 H (38-126) U/L Lipase 724 H (23-300) U/L Diabetes panel 05/13/21 Range/Units 16:12 Sodium 137 (137-145) mmol/L Potassium 4.4 (3.5-5.1) mmol/L Chloride 102 (98-107) mmol/L Carbon Dioxide 27 (22-30) mmol/L BUN 15 (7-17) mg/dL Creatinine 0.75 (0.52-1.04) mg/dL Glucose 186 H (74-99) mg/dL Calcium 9.7 (8.4-10.2) mg/dL AST 57 H (14-36) U/L ALT 106 H (4-34) U/L Alkaline Phosphatase 228 H (38-126) U/L Total Protein 7.3 (6.3-8.2) g/dL Albumin 4.5 (3.5-5.0) g/dL Calcium panel 05/13/21 Range/Units 16:12 Calcium 9.7 (8.4-10.2) mg/dL Albumin 4.5 (3.5-5.0) g/dL Pituitary panel 05/13/21 Range/Units 16:12 Sodium 137 (137-145) mmol/L Potassium 4.4 (3.5-5.1) mmol/L Chloride 102 (98-107) mmol/L Carbon Dioxide 27 (22-30) mmol/L BUN 15 (7-17) mg/dL Creatinine 0.75 (0.52-1.04) mg/dL Glucose 186 H (74-99) mg/dL Calcium 9.7 (8.4-10.2) mg/dL Adrenal panel 05/13/21 Range/Units 16:12 Sodium 137 (137-145) mmol/L Potassium 4.4 (3.5-5.1) mmol/L Chloride 102 (98-107) mmol/L Carbon Dioxide 27 (22-30) mmol/L BUN 15 (7-17) mg/dL Creatinine 0.75 (0.52-1.04) mg/dL Glucose 186 H (74-99) mg/dL Calcium 9.7 (8.4-10.2) mg/dL Total Bilirubin 0.2 (0.2-1.3) mg/dL AST 57 H (14-36) U/L ALT 106 H (4-34) U/L Alkaline Phosphatase 228 H (38-126) U/L Total Protein 7.3 (6.3-8.2) g/dL Albumin 4.5 (3.5-5.0) g/dL <Alfonso Horton - Last Filed: 05/14/21 13:45> History of Present Illness As above. Patient currently down for MRCP. Await those findings. We have no GI coverage at this time. If choledocholithiasis identified may require transfer. Continue liquid diet. Follow liver enzymes closely. Surgical - Exam Vital Signs Temp Pulse Resp BP Pulse Ox 98.3 F 83 16 136/73 97 05/13/21 15:35 05/13/21 15:35 05/13/21 15:35 05/13/21 15:35 05/13/21 15:35 Results - Labs 05/14/21 05:50 05/13/21 16:12 Abnormal Lab Results - Last 24 Hours (Table) 05/13/21 05/13/21 05/14/21 Range/Units 16:12 16:12 05:50 WBC 3.69 L (4.50-10.00) X 10*3/uL RBC 3.91 L (4.10-5.20) X 10*6/uL Hgb 11.8 L (12.0-15.0) g/dL Hct 35.8 L (37.2-46.3) % Neutrophils # 1.76 L (1.80-7.70) X 10*3/uL APTT 21.7 L (22.0-30.0) sec Glucose 186 H (74-99) mg/dL AST 57 H (14-36) U/L ALT 106 H (4-34) U/L Alkaline Phosphatase 228 H (38-126) U/L Lipase 724 H (23-300) U/L Diabetes panel 05/13/21 Range/Units 16:12 Sodium 137 (137-145) mmol/L Potassium 4.4 (3.5-5.1) mmol/L Chloride 102 (98-107) mmol/L Carbon Dioxide 27 (22-30) mmol/L BUN 15 (7-17) mg/dL Creatinine 0.75 (0.52-1.04) mg/dL Glucose 186 H (74-99) mg/dL Calcium 9.7 (8.4-10.2) mg/dL AST 57 H (14-36) U/L ALT 106 H (4-34) U/L Alkaline Phosphatase 228 H (38-126) U/L Total Protein 7.3 (6.3-8.2) g/dL Albumin 4.5 (3.5-5.0) g/dL Calcium panel 05/13/21 Range/Units 16:12 Calcium 9.7 (8.4-10.2) mg/dL Albumin 4.5 (3.5-5.0) g/dL Pituitary panel 05/13/21 Range/Units 16:12 Sodium 137 (137-145) mmol/L Potassium 4.4 (3.5-5.1) mmol/L Chloride 102 (98-107) mmol/L Carbon Dioxide 27 (22-30) mmol/L BUN 15 (7-17) mg/dL Creatinine 0.75 (0.52-1.04) mg/dL Glucose 186 H (74-99) mg/dL Calcium 9.7 (8.4-10.2) mg/dL Adrenal panel 05/13/21 Range/Units 16:12 Sodium 137 (137-145) mmol/L Potassium 4.4 (3.5-5.1) mmol/L Chloride 102 (98-107) mmol/L Carbon Dioxide 27 (22-30) mmol/L BUN 15 (7-17) mg/dL Creatinine 0.75 (0.52-1.04) mg/dL Glucose 186 H (74-99) mg/dL Calcium 9.7 (8.4-10.2) mg/dL Total Bilirubin 0.2 (0.2-1.3) mg/dL AST 57 H (14-36) U/L ALT 106 H (4-34) U/L Alkaline Phosphatase 228 H (38-126) U/L Total Protein 7.3 (6.3-8.2) g/dL Albumin 4.5 (3.5-5.0) g/dL
[2021-05-14 14:15] LABS: African American GFR (CKD) 82.8 (60.0-200.0); Albumin 3.8 g/dL (3.80-4.90); Albumin/Globulin Ratio 1.73 (1.60-3.17); Anion Gap 7.3 mmol/L (4.00-12.00); BUN/Creat Ratio 11.11 Ratio (12.00-20.00); Calcium 8.6 mg/dL (8.7-10.3); Carbon Dioxide 29.7 mmol/L (21.6-31.8); Globulin 2.2 g/dL (1.6-3.3); Non-African American GFR(CKD) 71.5 (60.0-200.0); Potassium 4.4 mmol/L (3.5-5.5); Total Bilirubin 0.3 mg/dL (0.3-1.2)
--- NOTE | 2021-05-14 15:49 | P.HPIM ---
History of Present Illness H&P Date: 05/14/21 This is a pleasant 56-year-old female who sent to the ER with abdominal pain and recently hospitalized with the possibility of pancreatitis. Patient states the pain never truly resolved since previous admission and patient continued herself on full liquid diet and continued to have the pain and decided to come into the hospital for further evaluation. Patient was recently diagnosed with pancre atitis secondary to gallstone pancreatitis although lipase is minimally elevated. Patient was instructed by surgery to return to the ER if symptoms persisted. Patient denies any nausea or vomiting and has been tolerating the full liquid diet with no reports of diarrhea or fevers noted. Eyes any chest pain or palpitations. Patient continued to have epigastric discomfort along with right and left upper quadrant tenderness. Apparently patient did follow-up with Dr. Horton outpatient. Patient does have a past medical history of asthma, hypertension, hypothyroid. Patient did not have a white blood count, no fevers noted. LFTs are minimally elevated along with alkaline phosphatase. Chest x- ray was negative for any acute cardiopulmonary process. Ultrasound was done of the right upper quadrant which showed no evidence of acute cholecystitis and the common bile duct was not visible along with hepatic steatosis noted. An MRCP has been ordered and pending. Review of Systems Constitutional: Denies chills, Denies fever Ears, nose, mouth and throat: Denies headache, Denies sore throat Cardiovascular: Denies chest pain, Denies shortness of breath Respiratory: Denies cough Gastrointestinal: Reports abdominal pain, Reports dyspepsia, Reports excessive gas, Reports indigestion, Reports nausea Genitourinary: Denies dysuria, Denies hematuria Musculoskeletal: Denies myalgias Integumentary: Denies pruritus, Denies rash Neurological: Denies numbness, Denies weakness Psychiatric: Denies anxiety, Denies depression Endocrine: Denies fatigue, Denies weight change Past Medical History Past Medical History: Asthma, Hypertension, Thyroid Disorder Additional Past Medical History / Comment(s): hypothyroid History of Any Multi-Drug Resistant Organisms: None Reported Past Surgical History: Section, Hysterectomy, Orthopedic Surgery Additional Past Surgical History / Comment(s): ORIF LT ELBOW. RT EAR KELOID REMOVED Past Anesthesia/Blood Transfusion Reactions: No Reported Reaction Past Psychological History: No Psychological Hx Reported Smoking Status: Former smoker Past Alcohol Use History: None Reported Past Drug Use History: None Reported - Past Family History Mother History Unknown: Yes Additional Family Medical History / Comment(s): PT ADOPTED FAMILY HX UNKNOWN Medications and Allergies Home Medications Medication Instructions Recorded Confirmed Type Losartan [Cozaar] 25 mg PO DAILY #30 tab 05/15/16 05/13/21 Rx Cyanocobalamin (Vitamin B-12) 1,000 mcg PO DAILY 05/04/21 05/13/21 History [Vitamin B-12] Levothyroxine Sodium [Euthyrox] 50 mcg PO DAILY@0230 05/04/21 05/13/21 History Metoprolol Tartrate [Lopressor] 25 mg PO BID 05/04/21 05/13/21 History Allergies Allergy/AdvReac Type Severity Reaction Status Date / Time codeine Allergy Rash/Hives Verified 05/13/21 16:45 meperidine HCl [From Demerol] Allergy Rash/Hives Verified 05/13/21 16:45 Penicillins Allergy Rash/Hives Verified 05/13/21 16:45 acetaminophen [From Vicodin] AdvReac Nausea & Verified 05/13/21 16:45 Vomiting hydrocodone bitartrate AdvReac Nausea & Verified 05/13/21 16:45 [From Vicodin] Vomiting Physical Exam Vitals: Vital Signs Temp Pulse Pulse Resp BP BP Pulse Ox 05/14/21 07:00 97.9 F 72 18 140/80 99 05/14/21 01:55 97.4 F L 68 18 119/79 99 05/13/21 20:00 99 F 65 18 147/78 100 05/13/21 18:18 87 18 153/77 99 05/13/21 15:35 98.3 F 83 16 136/73 97 Intake and Output 05/13/21 05/14/21 05/14/21 22:59 06:59 14:59 Other: Voiding Method Toilet # Voids 1 Weight 101.605 kg Gen: This is a 56-year-old female awake, alert and oriented 3, well-developed, well-nourished, no acute distress. HEENT: Head is atraumatic, normocephalic. Pupils equal, round. Sclerae is anicteric. NECK: Supple. No JVD. No lymphadenopathy. No thyromegaly. LUNGS: Clear to auscultation. No wheezes or rhonchi. No intercostal retractions. HEART: Regular rate and rhythm. No murmur. ABDOMEN: Soft. Mild tenderness noted in the right and left upper quadrant on palpation in the epigastric area. Bowel sounds are present. No masses. EXTREMITIES: No pedal edema. No calf tenderness. NEUROLOGICAL: Patient is awake, alert and oriented x3. Cranial nerves 2 through 12 are grossly intact. Results CBC & Chem 7: 05/14/21 05:50 05/14/21 05:50 Labs: Abnormal Lab Results - Last 24 Hours (Table) 05/13/21 05/13/21 Range/Units 16:12 16:12 APTT 21.7 L (22.0-30.0) sec Glucose 186 H (74-99) mg/dL AST 57 H (14-36) U/L ALT 106 H (4-34) U/L Alkaline Phosphatase 228 H (38-126) U/L Lipase 724 H (23-300) U/L Thrombosis Risk Factor Assmnt - DVT/VTE Prophylaxis DVT/VTE Prophylaxis: Low risk, early ambulation encouraged - Choose All That Apply Each Factor Represents 1 point: Age 41-60 years, Obesity (BMI >25) Other Risk Factors: No Thrombosis Risk Factor Assessment Total Risk Factor Score: 2 Thrombosis Risk Factor Assessment Level: Low Risk Assessment and Plan Assessment: Abdominal pain possibly secondary to cholelithiasis Nausea and vomiting secondary to above Mild transaminitis secondary to possible choledocholithiasis Possible pancreatitis although less likely with mildly elevated lipase Hypertension History of asthma Hypothyroidism GI prophylaxis: Pepcid DVT prophylaxis: Subcutaneous heparin Full code Plan: Patient will be evaluated by surgery and MRCP is ordered and pending at this time. In the event that patient may require ERCP patient will require transfer and this will be discussed with surgery as there is no GI coverage this week. Patient to continue on clear liquid diet along with appropriate home medications that have been resumed. Will repeat labs and continue to monitor liver functions. Encouraged ambulation. Gallbladder ultrasound showed no sonographic evidence of cholelithiasis or acute cholecystitis and the CBD is not well visualized with hepatics to ptosis along with soft tissue density anterior to the liver likely that represents normal soft tissue with no obvious findings around the pancreas, and a hepatic cyst of 1.2 cm similar to prior study. Time with Patient: Greater than 30
[2021-05-14] MEDS: SODIUM CHLORIDE 0.9% 1,000 ML IV SCH (18:44)
[2021-05-14] MEDS: HEPARIN SODIUM,PORCINE/PF 5,000 UNIT/0.5 ML SYRINGE SQ SCH (19:18)
[2021-05-15] MEDS: SODIUM CHLORIDE 0.9% 1,000 ML IV SCH ×3 (01:52→17:21)
[2021-05-15] MEDS: LEVOTHYROXINE 50 MCG TAB PO SCH ×3 (01:57→19:56)
[2021-05-15] MEDS: FAMOTIDINE 20 MG TAB PO SCH ×2 (08:01→19:56)
[2021-05-15] MEDS: LOSARTAN 25 MG TAB PO SCH (08:01)
[2021-05-15] MEDS: HEPARIN SODIUM,PORCINE/PF 5,000 UNIT/0.5 ML SYRINGE SQ SCH ×2 (08:01→19:55)
[2021-05-15] MEDS: METOPROLOL TARTRATE 25 MG TAB PO SCH ×2 (08:01→19:57)
[2021-05-15 10:36] LABS: African American GFR (CKD) 95.5 (60.0-200.0); Albumin/Globulin Ratio 1.67 (1.60-3.17); Anion Gap 6.1 mmol/L (4.00-12.00); BUN/Creat Ratio 11.25 Ratio (12.00-20.00); Calcium 9.2 mg/dL (8.7-10.3); Carbon Dioxide 28.9 mmol/L (21.6-31.8); Globulin 2.4 g/dL (1.6-3.3); Non-African American GFR(CKD) 82.4 (60.0-200.0); Potassium 4.4 mmol/L (3.5-5.5); Total Bilirubin 0.4 mg/dL (0.3-1.2); Total Protein 6.4 g/dL (6.2-8.2)
--- NOTE | 2021-05-15 12:55 | P.PN ---
Subjective This is a pleasant 56-year-old female who sent to the ER with abdominal pain and recently hospitalized with the possibility of pancreatitis. Patient states the pain never truly resolved since previous admission and patient continued herself on full liquid diet and continued to have the pain and decided to come into the hospital for further evaluation. Patient was recently diagnosed with pancreatitis secondary to gallstone pancreatitis although lipase is minimally elevated. Patient was instructed by surgery to return to the ER if symptoms persisted. Patient denies any nausea or vomiting and has been tolerating the full liquid diet with no reports of diarrhea or fevers noted. Eyes any chest pain or palpitations. Patient continued to have epigastric discomfort along with right and left upper quadrant tenderness. Apparently patient did follow-up with Dr. Horton outpatient. Patient does have a past medical history of asthma, hypertension, hypothyroid. Patient did not have a white blood count, no fevers noted. LFTs are minimally elevated along with alkaline phosphatase. Chest x- ray was negative for any acute cardiopulmonary process. Ultrasound was done of the right upper quadrant which showed no evidence of acute cholecystitis and the common bile duct was not visible along with hepatic steatosis noted. An MRCP has been ordered and pending. 05/15/2021 Patient did undergo MRCP results of which are pending. Further management depending on MRCP results patient doesn't have any significant abdominal pain at this time Gen: This is a 56-year-old female awake, alert and oriented 3, well-developed, well-nourished, no acute distress. HEENT: Head is atraumatic, normocephalic. Pupils equal, round. Sclerae is anicteric. NECK: Supple. No JVD. No lymphadenopathy. No thyromegaly. LUNGS: Clear to auscultation. No wheezes or rhonchi. No intercostal retractions. HEART: Regular rate and rhythm. No murmur. ABDOMEN: Soft. Mild tenderness noted in the right and left upper quadrant on palpation in the epigastric area. Bowel sounds are present. No masses. EXTREMITIES: No pedal edema. No calf tenderness. NEUROLOGICAL: Patient is awake, alert and oriented x3. Cranial nerves 2 through 12 are grossly intact. Assessment and Plan Assessment: Abdominal pain secondary to cholelithiasis, possibility of choledocholithiasis: Patient related did undergo MRCP results of which are pending. Patient is presently on clear liquid diet which will be continued Nausea and vomiting secondary to above Mild transaminitis secondary to possible choledocholithiasis Possible pancreatitis although less likely with mildly elevated lipase Hypertension History of asthma Hypothyroidism GI prophylaxis: Pepcid DVT prophylaxis: Subcutaneous heparin Full code Objective - Vital Signs Vital signs: Vital Signs Temp 98.4 F 05/15/21 07:00 Pulse 68 05/15/21 08:00 Resp 16 05/15/21 08:00 BP 137/82 05/15/21 07:00 Pulse Ox 98 05/15/21 07:00 Intake & Output 05/14/21 05/15/21 05/15/21 18:59 06:59 18:59 Intake Total 236 400 Balance 236 400 Weight 101.605 kg Intake: Oral 236 400 Other: Voiding Method Toilet Toilet Toilet # Voids 1 - Labs CBC & Chem 7: 05/14/21 05:50 05/15/21 05:42 Labs: Abnormal Lab Results - Last 24 Hours (Table) 05/14/21 05/15/21 Range/Units 05:50 05:42 BUN/Creatinine Ratio 11.11 L 11.25 L (12.00-20.00) Ratio Glucose 167 H 171 H (70-110) mg/dL Calcium 8.6 L (8.7-10.3) mg/dL AST 39 H (13-35) U/L ALT 80 H 78 H (8-44) U/L Alkaline Phosphatase 180 H 193 H (41-126) U/L Total Protein 6.0 L (6.2-8.2) g/dL Lipase 133 H 135 H (14-63) U/L
--- NOTE | 2021-05-15 13:57 | MR ---
EXAMINATION TYPE: MR pancreas / mrcp wo/w con DATE OF EXAM: 05/14/2021 COMPARISON: 05/13/2021 ultrasound HISTORY: Pancreatitis, concern for choledocholithiasis CONTRAST: Standard multiplanar, multisequence MRI departmental protocol utilizing 10 mL intravenous Gadavist ga dolinium contrast. FINDINGS: Liver and spleen kidneys and adrenal glands appear unremarkable. Attention is paid to the pancreas. Signal through the pancreas appears normal. The common bile duct a nd extrahepatic biliary ducts as visualized are normal and no filling defects are identified. This ex tends to the pancreatic head to the duodenum appears unremarkable. No signal abnormality within the d uct is identified. Normal vascular flow voids are evident. Three-D reconstructed images are reviewed on the computer. Intra and extrahepatic biliary ducts as vi sualized are normal. The common bile duct is normal. The portion of the pancreatic duct included with in the [id number] is normal. No filling defects or extra dural luminal defects are evident. IMPRESSION: No suspicious change to suggest choledocholithiasis.
--- NOTE | 2021-05-15 17:17 | P.PN ---
Subjective Progress Note Date: 05/15/21 CHIEF COMPLAINT: Gallstone pancreatitis HISTORY OF PRESENT ILLNESS: The patient is a 56-year-old female readmitted to the hospital for gallstone pancreatitis failed outpatient management. MRCP is completed. Patient reports she is refusing her high sugar ensure drinks with over 50+grams of carbs. She is refusing her heparin and is ambulated 6x in her room. 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 Her IVs are not connected. She is hungry, "I want to eat!" She reports resolved epigastric pain. ROS: No reports of nausea and vomiting. No bowel movements. No fevers or chills. No new chest pain. No productive sputum PHYSICAL EXAM: VITAL SIGNS: Reviewed CONSTITUTIONAL: Well developed and in no acute distress. EYES: Conjuctivae without sclera icterus. Extraocular movements grossly intact. HEAD, EARS, NOSE, THROAT: Moist buccal mucosa. Head is atraumatic, normocephalic. Hears conversational speech. No nasal drainage. NECK: No gross thyroidomegaly. No jugular venous distention. RESPIRATORY: Non-labored respirations and equal bilateral excursions. CARDIOVASCULAR: Palpable 2+ radial pulses. Regular rate. Regular rhythm. ABDOMEN: No peritonitis. MUSCULOSKELETAL: No gross deformity of the lower extremities noted. No clubbing. No cyanosis. SKIN: Good skin turgor. Well perfused. NEUROLOGIC: Cranial nerves II through XII grossly intact. No focal or lateralizing signs. PSYCH: Appropriate affect. Alert and oriented to person, place and time. CLINICAL LABS: White blood cell count not elevated at 3.69. Total bilirubin normal. LFTs trending down. STUDIES: MRCP independently reviewed by me without any moderate dilations of the common bile duct. This is my independent interpretation. REPORTS: MRCP report confirms no filling defects or choledocholithiasis. ASSESSMENT: 1. Acute gallstone pancreatitis PLAN: 1. Monitor LFTs 2. Recommend inpatient surgical intervention 3. Adjust to low fat diet 4. Re-start IV fluids 5. Dietary management including low fats and avoiding oils, gravies and avocadoes reviewed. Objective - Vital Signs Vital signs: Vital Signs Temp 98.4 F 05/15/21 07:00 Pulse 68 05/15/21 14:00 Resp 16 05/15/21 14:00 BP 137/82 05/15/21 07:00 Pulse Ox 98 05/15/21 07:00 Intake & Output 05/14/21 05/15/21 05/15/21 18:59 06:59 18:59 Intake Total 236 400 Balance 236 400 Weight 101.605 kg Intake: Oral 236 400 Other: Voiding Method Toilet Toilet Toilet # Voids 1 3 - Labs CBC & Chem 7: 05/14/21 05:50 05/15/21 05:42 Labs: Abnormal Lab Results - Last 24 Hours (Table) 05/15/21 Range/Units 05:42 BUN/Creatinine Ratio 11.25 L (12.00-20.00) Ratio Glucose 171 H (70-110) mg/dL ALT 78 H (8-44) U/L Alkaline Phosphatase 193 H (41-126) U/L Lipase 135 H (14-63) U/L
[2021-05-16] MEDS: SODIUM CHLORIDE 0.9% 1,000 ML IV SCH ×2 (03:08→20:36)
[2021-05-16] MEDS: FAMOTIDINE 20 MG TAB PO SCH ×2 (07:27→20:35)
[2021-05-16] MEDS: LOSARTAN 25 MG TAB PO SCH (07:27)
[2021-05-16] MEDS: METOPROLOL TARTRATE 25 MG TAB PO SCH ×2 (07:27→19:56)
[2021-05-16] MEDS: HEPARIN SODIUM,PORCINE/PF 5,000 UNIT/0.5 ML SYRINGE SQ SCH ×2 (07:27→19:57)
--- NOTE | 2021-05-16 12:12 | P.PN ---
Subjective Progress Note Date: 05/16/21 This is a pleasant 56-year-old female who sent to the ER with abdominal pain and recently hospitalized with the possibility of pancreatitis. Patient states the pain never truly resolved since previous admission and patient continued herself on full liquid diet and continued to have the pain and decided to come into the hospital for further evaluation. Patient was recently diagnosed with pancreatitis secondary to gallstone pancreatitis although lipase is minimally elevated. Patient was instructed by surgery to return to the ER if symptoms persisted. Patient denies any nausea or vomiting and has been tolerating the full liquid diet with no reports of diarrhea or fevers noted. Eyes any chest pa in or palpitations. Patient continued to have epigastric discomfort along with right and left upper quadrant tenderness. Apparently patient did follow-up with Dr. Horton outpatient. Patient does have a past medical history of asthma, hypertension, hypothyroid. Patient did not have a white blood count, no fevers noted. LFTs are minimally elevated along with alkaline phosphatase. Chest x- ray was negative for any acute cardiopulmonary process. Ultrasound was done of the right upper quadrant which showed no evidence of acute cholecystitis and the common bile duct was not visible along with hepatic steatosis noted. An MRCP has been ordered and pending. 05/15/2021 Patient did undergo MRCP results of which are pending. Further management depending on MRCP results patient doesn't have any significant abdominal pain at this time 05/16/2021 MRCP showed no evidence of choledocholithiasis, to no surgery is recommended for inpatient surgical intervention possibly tomorrow. Vital signs are stable, no, clinically she is not having significant pain at this time. Gen: This is a 56-year-old female awake, alert and oriented 3, well-developed, well-nourished, no acute distress. HEENT: Head is atraumatic, normocephalic. Pupils equal, round. Sclerae is anicteric. NECK: Supple. No JVD. No lymphadenopathy. No thyromegaly. LUNGS: Clear to auscultation. No wheezes or rhonchi. No intercostal retractions. HEART: Regular rate and rhythm. No murmur. ABDOMEN: Soft. Mild tenderness noted in the right and left upper quadrant on palpation in the epigastric area. Bowel sounds are present. No masses. EXTREMITIES: No pedal edema. No calf tenderness. NEUROLOGICAL: Patient is awake, alert and oriented x3. Cranial nerves 2 through 12 are grossly intact. Assessment and Plan Assessment: Abdominal pain secondary to cholelithiasis, possibility of choledocholithiasis: No evidence of choledocholithiasis on MRCP, possible cholecystectomy tomorrow per surgery, restart IV fluids, diet per surgery, nothing by mouth at midnight for procedure. In Nausea and vomiting secondary to above Mild transaminitis secondary to possible choledocholithiasis: Liver functions stable. Possible gallstone pancreatitis: Clinically doing well, pain is controlled. Possible cholecystectomy tomorrow per surgery Hypertension History of asthma Hypothyroidism GI prophylaxis: Pepcid DVT prophylaxis: Subcutaneous heparin Full code For above-mentioned conditions patient is continued on appropriate home medications. Objective - Vital Signs Vital signs: Vital Signs Temp 97.9 F 05/16/21 07:00 Pulse 71 05/16/21 08:00 Resp 18 05/16/21 08:00 BP 148/83 05/16/21 07:00 Pulse Ox 99 05/16/21 07:00 Intake & Output 05/15/21 05/16/21 05/16/21 18:59 06:59 18:59 Intake Total 400 350 Balance 400 350 Intake: Oral 400 350 Other: Voiding Method Toilet Toilet Toilet # Voids 3 2 - Labs CBC & Chem 7: 05/14/21 05:50 05/15/21 05:42 Labs: Abnormal Lab Results - Last 24 Hours (Table) 05/15/21 Range/Units 05:42 Lipase 135 H (14-63) U/L
--- NOTE | 2021-05-16 12:53 | P.PN ---
Subjective Progress Note Date: 05/16/21 CHIEF COMPLAINT: Gallstone pancreatitis HISTORY OF PRESENT ILLNESS: The patient is a 56-year-old female readmitted to the hospital for gallstone pancreatitis failed outpatient management. MRCP is normal. She tolerated low fat diet. "I am not HANGRY anymore." Family is at bedside. She is more compliant with her care. She is eager for surgery. Family and friends are at bedside. She is sitting up in bed with much better mood. ROS: No reports of nausea and vomiting. No bowel movements. No fevers or chills. No new chest pain. No productive sputum PHYSICAL EXAM: VITAL SIGNS: Reviewed CONSTITUTIONAL: Well developed and in no acute distress. EYES: Conjuctivae without sclera icterus. Extraocular movements grossly intact. HEAD, EARS, NOSE, THROAT: Moist buccal mucosa. Head is atraumatic, normocephalic. Hears conversational speech. No nasal drainage. NECK: No gross thyroidomegaly. No jugular venous distention. RESPIRATORY: Non-labored respirations and equal bilateral excursions. CARDIOVASCULAR: Palpable 2+ radial pulses. ABDOMEN: No peritonitis. No epigastric pain. MUSCULOSKELETAL: No gross deformity of the lower extremities noted. No clubbing. No cyanosis. SKIN: Good skin turgor. Well perfused. NEUROLOGIC: Cranial nerves II through XII grossly intact. No focal or lateralizing signs. PSYCH: Appropriate affect. Alert and oriented to person, place and time. CLINICAL LABS: No new labs. ASSESSMENT: 1. Acute gallstone pancreatitis 2. Morbid obesity PLAN: 1. Continue low diet 2. Recommend cholecystectomy for failed outpatient management of gallstones pancreatitis 3. Patient is elevated risk with diabetes, morbid obesity, and history of complicated pancreatitis. Objective - Vital Signs Vital signs: Vital Signs Temp 97.9 F 05/16/21 07:00 Pulse 71 05/16/21 08:00 Resp 18 05/16/21 08:00 BP 148/83 05/16/21 07:00 Pulse Ox 99 05/16/21 07:00 Intake & Output 05/15/21 05/16/21 05/16/21 18:59 06:59 18:59 Intake Total 400 350 Balance 400 350 Intake: Oral 400 350 Other: Voiding Method Toilet Toilet Toilet # Voids 3 2 - Labs CBC & Chem 7: 05/14/21 05:50 05/15/21 05:42 Assessment and Plan (1) Morbid obesity due to excess calories Current Visit: Yes Status: Acute Code(s): E66.01 - MORBID (SEVERE) OBESITY DUE TO EXCESS CALORIES SNOMED Code(s): 721081890 (2) BMI 37.0-37.9, adult Current Visit: Yes Status: Acute Code(s): Z68.37 - BODY MASS INDEX [BMI] 37.0-37.9, ADULT SNOMED Code(s): 148643636 (3) Diabetes type 2, uncontrolled Current Visit: Yes Status: Acute Code(s): E11.65 - TYPE 2 DIABETES MELLITUS WITH HYPERGLYCEMIA SNOMED Code(s): 213332035 (4) Gallstone pancreatitis Current Visit: No Status: Acute Code(s): K85.10 - BILIARY ACUTE PANCREATITIS WITHOUT NECROSIS OR INFECTION SNOMED Code(s): 11830982 (5) Hypertensive heart disease Current Visit: Yes Status: Acute Code(s): I11.9 - HYPERTENSIVE HEART DISEASE WITHOUT HEART FAILURE SNOMED Code(s): 08073252
[2021-05-17] MEDS: LEVOTHYROXINE 50 MCG TAB PO SCH (02:23)
[2021-05-17] MEDS ORDERED: CLINDAMYCIN 900 MG in DEXTROSE 5% IN WATER 50 ML IVPB PRN ×2 (07:00)
[2021-05-17] MEDS: FAMOTIDINE 20 MG TAB PO SCH ×2 (08:34→22:12)
[2021-05-17] MEDS: METOPROLOL TARTRATE 25 MG TAB PO SCH ×2 (08:34→22:11)
[2021-05-17] MEDS: LOSARTAN 25 MG TAB PO SCH (08:35)
[2021-05-17] MEDS: SODIUM CHLORIDE 0.9% 1,000 ML IV SCH (08:35)
[2021-05-17 09:32] LABS: Basophils # (A) 0.03 X 10*3/uL (0.00-0.10); Basophils % (A) 0.7 %; Eosinophils # (A) 0.19 X 10*3/uL (0.04-0.35); Eosinophils % (A) 4.7 %; HCT 37.4 % (37.2-46.3); HGB 12.6 g/dL (12.0-15.0); Lymphocytes # (A) 1.24 X 10*3/uL (0.90-5.00); Lymphocytes % (A) 30.7 %; MCH 30.3 pg (27.0-32.0); MCHC 33.7 g/dL (32.0-37.0); MCV 89.9 fL (80.0-97.0); Mean Platelet Volume 9.9 fL (9.5-12.2); Monocytes # (A) 0.45 X 10*3/uL (0.20-1.00); Monocytes % (A) 11.1 %; Neutrophils # (A) 2.12 X 10*3/uL (1.80-7.70); Neutrophils % (A) 52.6 %; Platelet Count 291 X 10*3/uL (140-440); RBC 4.16 X 10*6/uL (4.10-5.20); RDW 11.8 % (11.5-14.5); WBC 4.04 X 10*3/uL (4.50-10.00)
[2021-05-17] MEDS: HEPARIN SODIUM,PORCINE/PF 5,000 UNIT/0.5 ML SYRINGE SQ SCH ×2 (09:42→20:55)
[2021-05-17 10:14] LABS: African American GFR (CKD) 95.5 (60.0-200.0); Albumin/Globulin Ratio 1.74 (1.60-3.17); Anion Gap 7.7 mmol/L (4.00-12.00); Carbon Dioxide 26.3 mmol/L (21.6-31.8); Globulin 2.3 g/dL (1.6-3.3); Non-African American GFR(CKD) 82.4 (60.0-200.0); Potassium 4.4 mmol/L (3.5-5.5); Total Bilirubin 0.2 mg/dL (0.3-1.2); Total Protein 6.3 g/dL (6.2-8.2)
[2021-05-17 11:47] LABS: Glucose,Whole Blood 141 mg/dL (75-99)
[2021-05-17] MEDS: INSULIN ASPART (NovoLOG) 100 UNIT/ML VIAL SQ SCH ×3 (12:22→20:54)
[2021-05-17] MEDS ORDERED: LACTATED RINGERS 1,000 ML IV ONE (13:37)
[2021-05-17] MEDS ORDERED: HEPARIN SODIUM,PORCINE 5,000 UNIT/ML 1 ML VIAL SQ ONE (13:46)
--- NOTE | 2021-05-17 13:51 | P.PN ---
Progress Note - Text Progress Note Date: 05/17/21 Over the weekend the patient had her MRCP completed. MRCP showed no evidence of choledocholithiasis. Films reviewed with radiology this morning given the recent ultrasound suggesting an abnormality adjacent to the liver. This is thought to represent a peritoneal fat. On MRI no abnormalities was noted. Mild inflammation of the tail of pancreas is seen. On the last few days the patient's pain has become much less. She has been tolerating regular diet. Liver enzymes for the most part improving in addition to her pancreatic enzymes. Patient would like to proceed with cholecystectomy now since she is still hospitalized. We'll proceed with laparoscopic, possible open cholecystectomy at this time. Risks of bleeding, infection, bile leak, bile duct injury, retained common bile duct stone, trocar injury, conversion to an open procedure, hernia, anesthesia related complications were reviewed. The patient understands and wishes to proceed.
[2021-05-17 13:52] LABS: Glucose,Whole Blood 118 mg/dL (75-99)
[2021-05-17] MEDS ORDERED: DEXAMETHASONE SOD PHOSPHATE 4 MG/ML 1 ML VIAL IVP ONE (13:57)
[2021-05-17] MEDS ORDERED: ONDANSETRON 4 MG/2 ML VIAL IVP ONE ×2 (13:57→15:20)
[2021-05-17] MEDS ORDERED: fentaNYL (PF) 50 MCG/ML 2 ML AMP ONE (14:02)
[2021-05-17] MEDS ORDERED: ROCURONIUM 10 MG/ML (5 ML VIAL) IV ONE (14:02)
[2021-05-17] MEDS ORDERED: MIDAZOLAM 2 MG/2 ML VIAL ONE (14:02)
[2021-05-17] MEDS ORDERED: PROPOFOL 10 MG/ML 20 ML VIAL IV ONE (14:02)
[2021-05-17] MEDS ORDERED: LIDOCAINE 1% INJ 10MG/ML (20 ML MDV) ONE (14:02)
[2021-05-17] MEDS ORDERED: NEOSTIGMINE 1 MG/ML 10 ML VIAL ONE (14:02)
[2021-05-17] MEDS ORDERED: SUCCINYLCHOLINE CHLORIDE 100 MG/5 ML SYR IV ONE (14:02)
[2021-05-17] MEDS ORDERED: GLYCOPYRROLATE 0.2 MG/ML 2 ML VIAL ONE (14:02)
[2021-05-17] MEDS ORDERED: BUPIVACAINE (PF) 0.25% 30 ML VIAL SQ ONE ×2 (14:21)
--- NOTE | 2021-05-17 14:51 | P.PN ---
Subjective Progress Note Date: 05/17/21 This is a pleasant 56-year-old female who sent to the ER with abdominal pain and recently hospitalized with the possibility of pancreatitis. Patient states the pain never truly resolved since previous admission and patient continued herself on full liquid diet and continued to have the pain and decided to come into the hospital for further evaluation. Patient was recently diagnosed with pancreatitis secondary to gallstone pancreatitis although lipase is minimally elevated. Patient was instructed by surgery to return to the ER if symptoms persisted. Patient denies any nausea or vomiting and has been tolerating the full liquid diet with no reports of diarrhea or fevers noted. Eyes any chest pa in or palpitations. Patient continued to have epigastric discomfort along with right and left upper quadrant tenderness. Apparently patient did follow-up with Dr. Horton outpatient. Patient does have a past medical history of asthma, hypertension, hypothyroid. Patient did not have a white blood count, no fevers noted. LFTs are minimally elevated along with alkaline phosphatase. Chest x- ray was negative for any acute cardiopulmonary process. Ultrasound was done of the right upper quadrant which showed no evidence of acute cholecystitis and the common bile duct was not visible along with hepatic steatosis noted. An MRCP has been ordered and pending. 05/15/2021 Patient did undergo MRCP results of which are pending. Further management depending on MRCP results patient doesn't have any significant abdominal pain at this time 05/16/2021 MRCP showed no evidence of choledocholithiasis, to no surgery is recommended for inpatient surgical intervention possibly tomorrow. Vital signs are stable, no, clinically she is not having significant pain at this time. 05/17/2021 Patient is to have a tarun today with surgical services. MRCP was within normal limits, patient is tolerating a low-fat diet. Patient is recommended for a cholecystectomy today for a failed outpatient management of gallstones pancreatitis via surgical services. Patient reports intermittent abdominal pain, denies nausea, denies vomiting, denies diarrhea. Patient does not have a history of diabetes, states that her blood sugars are usually well controlled and previous lab work. Patient is educated her blood sugars are elevated, we'll order NovoLog signs: Coverage for glycemic control d/t surgical patient, check A1c in the morning. Patient is educated about this and is understanding. AST and ALT are trending down, continue with Accu-Cheks. Vital signs are stable, temp 97.6, heart rate in the 60's sinus rhythm, blood pressure 140/86. Patient is a 93% on room air. ROS: Constitutional: Denied any fatigue denied any fever. Cardio vascular: denied any chest pain, palpitations Gastrointestinal denied any nausea vomiting Pulmonary: Denied any shortness of breath cough Neurologic denied any new focal deficits All inpatient medications were reviewed and appropriate changes in these medications as dictated in the interval history and assessment and plan. PHYSICAL EXAMINATION: GENERAL: The patient is alert and oriented x3, not in any acute distress. Well developed, well nourished. HEENT: Pupils are round and equally reacting to light. EOMI. No scleral icterus. No conjunctival pallor. Normocephalic, atraumatic. No pharyngeal erythema. No thyromegaly. CARDIOVASCULAR: S1 and S2 present. No murmurs, rubs, or gallops. PULMONARY: Chest is clear to auscultation, no wheezing or crackles. ABDOMEN: Soft, nontender, nondistended, normoactive bowel sounds. No palpable organomegaly. MUSCULOSKELETAL: No joint swelling or deformity. EXTREMITIES: No cyanosis, clubbing, or pedal edema. NEUROLOGICAL: Gross neurological examination did not reveal any focal deficits. SKIN: No rashes. Assessment and Plan: Abdominal pain secondary to cholelithiasis, possibility of choledocholithiasis: No evidence of choledocholithiasis on MRCP, possible cholecystectomy tomorrow per surgery, restart IV fluids, diet per surgery, nothing by mouth at midnight for procedure. Pending Tarun today. Nausea and vomiting secondary to above, improving. Mild transaminitis secondary to possible choledocholithiasis: Liver functions stable. Trending downwards. Possible gallstone pancreatitis: Clinically doing well, pain is controlled. Pending Gail today. Hypertension History of asthma Hypothyroidism Hyperglycemia, no history of diabetes mellitus type 2. Will check blood sugars before meals and at bedtime, NovoLog Coverage, A1c in the morning. GI prophylaxis: Pepcid DVT prophylaxis: Subcutaneous heparin Full code For above-mentioned conditions patient is continued on appropriate home medications. Objective - Vital Signs Vital signs: Vital Signs Temp 96.9 F L 05/17/21 13:23 Pulse 71 05/17/21 13:23 Resp 18 05/17/21 13:23 BP 152/67 05/17/21 13:23 Pulse Ox 98 05/17/21 13:23 Intake & Output 05/16/21 05/17/21 05/17/21 18:59 06:59 18:59 Intake Total 350 156 Balance 350 156 Intake: IV 156 Oral 350 Other: Voiding Method Toilet Toilet Toilet # Voids 3 2 - Labs CBC & Chem 7: 05/17/21 06:30 05/17/21 06:30 Labs: Abnormal Lab Results - Last 24 Hours (Table) 05/17/21 05/17/21 05/17/21 Range/Units 06:30 06:30 11:45 WBC 4.04 L (4.50-10.00) X 10*3/uL Glucose 173 H (70-110) mg/dL POC Glucose (mg/dL) 141 H (75-99) mg/dL Total Bilirubin 0.2 L (0.3-1.2) mg/dL ALT 66 H (8-44) U/L Alkaline Phosphatase 194 H (41-126) U/L 05/17/21 Range/Units 13:50 WBC (4.50-10.00) X 10*3/uL Glucose (70-110) mg/dL POC Glucose (mg/dL) 118 H (75-99) mg/dL Total Bilirubin (0.3-1.2) mg/dL ALT (8-44) U/L Alkaline Phosphatase (41-126) U/L Assessment and Plan Time with Patient: Greater than 30
[2021-05-17] MEDS ORDERED: traMADol 50 MG TAB PO PRN (15:19)
--- NOTE | 2021-05-17 15:21 | P.OP ---
Date of Procedure: 05/17/21 Procedure(s) Performed: PREOPERATIVE DIAGNOSIS: Gallstone pancreatitis POSTOPERATIVE DIAGNOSIS: Same PROCEDURE: Laparoscopic cholecystectomy SURGEON: Clifford EBL: Minimal see anesthesia record ANESTHESIA: Gen. COMPLICATIONS: None OPERATIVE PROCEDURE: The patient was brought and placed on the operating room [facility] in the supine position. The patient was placed under general anesthesia at that time. The abdomen was prepped and draped in the usual sterile fashion. A small vertical infraumbilical incision was made. The fascia was grasped with the Al forceps. The fascia was retracted anteriorly. The Veress needle was advanced into the peritoneal cavity. The saline drop test was normal. Insufflation took place up to 15 mmHg. A 5 mm optical trocar was advanced and the peritoneal cavity. 2 additional 5 mm trochars were placed in the right upper quadrant under direct visualization. A 12 mm trocar was advanced into the epigastric incision site. The gallbladder was mildly inflamed with a thickened wall. There were no adhesions to the gallbladder. The gallbladder was partially intrahepatic and the patient's liver was somewhat enlarged. The gallbladder was retracted superiorly and laterally. The peritoneum overlying the infundibulum was bluntly dissected. The patient's cystic duct was visualized. The junction between the cystic duct common and hepatic duct was identified. The critical view of safety was achieved after blunt dissection. A 2-0 Ethibond stitch was placed around the cystic duct and tied down using the tie knot device. An additional 12 mm clip was also paced next to the tie knot on the patient's side. The cystic duct was cut on the opposite side of the clip. The cystic artery was identified and clipped as well. A small vessel was seen along the gallbladder fossa and clipped as well. The gallbladder was then removed from the liver bed using electrocautery. The gallbladder was then removed from the epigastric trocar site with an Endo Catch bag. The gallbladder fossa was irrigated with saline. There was no evidence of any bleeding or biliary drainage seen. The fascia at the 12 millimeter site was closed using a Adeolaon 0 Vicryl stitch. The trochars were then removed. The skin at all 4 sites was closed using a 4-0 Monocryl stitch. Skin glue was utilized on the incision sites. At the end of this procedure the sponge and needle counts were correct. DISPOSITION: Stable to the recovery room
[2021-05-17] MEDS ORDERED: HYDROmorphone 0.5 MG/0.5 ML SYRINGE IVP ONE ×4 (15:35→16:32)
[2021-05-17] MEDS ORDERED: METOCLOPRAMIDE 5 MG/ML 2 ML VIAL ONE (16:13)
[2021-05-17] MEDS ORDERED: METOCLOPRAMIDE 5 MG/ML 2 ML VIAL IVP ONE (16:15)
[2021-05-17 16:55] LABS: Glucose,Whole Blood 166 mg/dL (75-99)
[2021-05-17 17:54] LABS: Glucose,Whole Blood 190 mg/dL (75-99)
[2021-05-17 19:59] LABS: Glucose,Whole Blood 221 mg/dL (75-99)
[2021-05-17] MEDS ORDERED: ONDANSETRON 4 MG/2 ML VIAL IVP PRN (20:46)
[2021-05-17] MEDS ORDERED: MORPHINE SULFATE 4 MG/ML SYRINGE IVP PRN (20:50)
[2021-05-17] MEDS: HYDROmorphone 1 MG/ML 1 ML SYRINGE IVP PRN (22:25)
[2021-05-18] MEDS: SODIUM CHLORIDE 0.9% 1,000 ML IV SCH ×2 (00:37→14:35)
[2021-05-18 01:59] VITALS: PULSE 68
[2021-05-18] MEDS: LEVOTHYROXINE 50 MCG TAB PO SCH (02:00)
[2021-05-18] MEDS: HYDROmorphone 1 MG/ML 1 ML SYRINGE IVP PRN (02:01)
[2021-05-18 06:35] LABS: Glucose,Whole Blood 158 mg/dL (75-99)
[2021-05-18] MEDS: INSULIN ASPART (NovoLOG) 100 UNIT/ML VIAL SQ SCH ×2 (06:39→13:12)
[2021-05-18 07:12] LABS: Basophils % (A) 0 %; Eosinophils % (A) 0 %; HCT 37.9 % (34.0-46.0); HGB 12.7 gm/dL (11.4-16.0); Lymphocytes # (A) 0.6 k/uL (1.0-4.8); Lymphocytes % (A) 8 %; MCH 30.9 pg (25.0-35.0); MCHC 33.6 g/dL (31.0-37.0); Mean Platelet Volume 7.5; Monocytes # (A) 0.4 k/uL (0-1.0); Monocytes % (A) 5 %; Neutrophils # (A) 6.4 k/uL (1.3-7.7); Neutrophils % (A) 85 %; Platelet Count 310 k/uL (150-450); RBC 4.13 m/uL (3.80-5.40); RDW 12.7 % (11.5-15.5); WBC 7.6 k/uL (3.8-10.6)
[2021-05-18 07:28] LABS: ALT 76 U/L (4-34); AST 50 U/L (14-36); African American GFR (CKD) >90 (>60 ml/min/1.73 sqM); Albumin 3.9 g/dL (3.5-5.0); Alkaline Phosphatase 172 U/L (38-126); Anion Gap 6 mmol/L; Blood Urea Nitrogen 13 mg/dL (7-17); Carbon Dioxide 26 mmol/L (22-30); Chloride 104 mmol/L (98-107); Glucose 166 mg/dL (74-99); Non-African American GFR(CKD) >90 (>60 ml/min/1.73 sqM); Potassium 4.4 mmol/L (3.5-5.1); Sodium 136 mmol/L (137-145); Total Bilirubin 0.4 mg/dL (0.2-1.3); Total Protein 6.4 g/dL (6.3-8.2)
[2021-05-18 09:10] VITALS: TEMP 98.2
[2021-05-18] MEDS: FAMOTIDINE 20 MG TAB PO SCH (10:05)
[2021-05-18] MEDS: METOPROLOL TARTRATE 25 MG TAB PO SCH (10:06)
[2021-05-18] MEDS: HEPARIN SODIUM,PORCINE/PF 5,000 UNIT/0.5 ML SYRINGE SQ SCH (10:06)
[2021-05-18] MEDS: LOSARTAN 25 MG TAB PO SCH (10:06)
[2021-05-18 13:01] LABS: Glucose,Whole Blood 143 mg/dL (75-99)
--- NOTE | 2021-05-18 14:22 | P.PN ---
Subjective Progress Note Date: 05/18/21 This is a pleasant 56-year-old female who sent to the ER with abdominal pain and recently hospitalized with the possibility of pancreatitis. Patient states the pain never truly resolved since previous admission and patient continued herself on full liquid diet and continued to have the pain and decided to come into the hospital for further evaluation. Patient was recently diagnosed with pancreatitis secondary to gallstone pancreatitis although lipase is minimally elevated. Patient was instructed by surgery to return to the ER if symptoms persisted. Patient denies any nausea or vomiting and has been tolerating the full liquid diet with no reports of diarrhea or fevers noted. Eyes any chest pain or palpitations. Patient continued to have epigastric discomfort along with right and left upper quadrant tenderness. Apparently patient did follow-up with Dr. Horton outpatient. Patient does have a past medical history of asthma, hypertension, hypothyroid. Patient did not have a white blood count, no fevers noted. LFTs are minimally elevated along with alkaline phosphatase. Chest x- ray was negative for any acute cardiopulmonary process. Ultrasound was done of the right upper quadrant which showed no evidence of acute cholecystitis and the common bile duct was not visible along with hepatic steatosis noted. An MRCP has been ordered and pending. 05/15/2021 Patient did undergo MRCP results of which are pending. Further management depending on MRCP results patient doesn't have any significant abdominal pain at this time 05/16/2021 MRCP showed no evidence of choledocholithiasis, to no surgery is recommended for inpatient surgical intervention possibly tomorrow. Vital signs are stable, no, clinically she is not having significant pain at this time. 05/17/2021 Patient is to have a tarun today with surgical services. MRCP was within normal limits, patient is tolerating a low-fat diet. Patient is recommended for a cholecystectomy today for a failed outpatient management of gallstones pancreatitis via surgical services. Patient reports intermittent abdominal pain, denies nausea, denies vomiting, denies diarrhea. Patient does not have a history of diabetes, states that her blood sugars are usually well controlled and previous lab work. Patient is educated her blood sugars are elevated, we'll order NovoLog signs: Coverage for glycemic control d/t surgical patient, check A1c in the morning. Patient is educated about this and is understanding. AST and ALT are trending down, continue with Accu-Cheks. Vital signs are stable, temp 97.6, heart rate in the 60's sinus rhythm, blood pressure 140/86. Patient is a 93% on room air. 05/18/2021 Patient is evaluated today at the bedside POD #1, laproscopic cholecystectomy. Patient today reports in improvement in her abdominal pain. Patient denies nausea, vomiting. At the time of my examination patient denies passing flatus. She is urinating without difficulty. Denies chest pain, cough, SOB. Patient is hoping to be discharged tomorrow from surgical services. Following blood sugars closely, monitoring ACHS. A1C pending. Thank you for this consultation. ROS: Constitutional: Denied any fatigue denied any fever. Cardio vascular: denied any chest pain, palpitations Gastrointestinal denied any nausea vomiting Pulmonary: Denied any shortness of breath cough Neurologic denied any new focal deficits All inpatient medications were reviewed and appropriate changes in these medications as dictated in the interval history and assessment and plan. PHYSICAL EXAMINATION: GENERAL: The patient is alert and oriented x3, not in any acute distress. Well developed, well nourished. HEENT: Pupils are round and equally reacting to light. EOMI. No scleral icterus. No conjunctival pallor. Normocephalic, atraumatic. No pharyngeal erythema. No thyromegaly. CARDIOVASCULAR: S1 and S2 present. No murmurs, rubs, or gallops. PULMONARY: Chest is clear to auscultation, no wheezing or crackles. ABDOMEN: Soft, nontender, nondistended, normoactive bowel sounds. No palpable organomegaly. MUSCULOSKELETAL: No joint swelling or deformity. EXTREMITIES: No cyanosis, clubbing, or pedal edema. NEUROLOGICAL: Gross neurological examination did not reveal any focal deficits. SKIN: No rashes. Assessment and Plan: Abdominal pain secondary to cholelithiasis, possibility of cholelithiasis: No evidence of cholelithiasis on MRCP. Post Op day #1 cholecystectomy gallstone pancreatitis - postoperative diagnosis via surgical services Nausea and vomiting secondary to above, improved, tolerating clrs Mild transaminitis secondary to possible choledocholithiasis: Liver functions stable. Trending downwards. Hypertension - on losartan History of asthma Hypothyroidism Hyperglycemia, no history of diabetes mellitus type 2. Will check blood sugars before meals and at bedtime, NovoLog Coverage, A1c pending GI prophylaxis: Pepcid DVT prophylaxis: Subcutaneous heparin Full code For above-mentioned conditions patient is continued on appropriate home medications. We will follow along with patient. Thank you for this consultation. Objective - Vital Signs Vital signs: Vital Signs Temp 98.2 F 05/18/21 08:53 Pulse 68 05/18/21 08:53 Resp 16 05/18/21 08:53 BP 145/84 05/18/21 08:53 Pulse Ox 98 05/18/21 08:53 Intake & Output 05/17/21 05/18/21 05/18/21 18:59 06:59 18:59 Intake Total 816 225 Output Total 5 400 900 Balance 811 -175 -900 Weight 101.605 kg Intake: IV 756 Intake, IV Titration 225 Amount Sodium Chloride 0.9% 1, 225 000 ml @ 75 mls/hr IV . [id number] [facility] Rx#:[id number] Oral 60 Output: Urine 400 900 Estimated Blood Loss 5 Other: Voiding Method Toilet # Voids 2 1 # Emeses 1 - Labs CBC & Chem 7: 05/18/21 06:50 05/18/21 06:50 Labs: Abnormal Lab Results - Last 24 Hours (Table) 05/17/21 05/17/21 05/17/21 Range/Units 16:50 17:52 19:58 Lymphocytes # (1.0-4.8) k/uL Sodium (137-145) mmol/L Glucose (74-99) mg/dL POC Glucose (mg/dL) 166 H 190 H 221 H (75-99) mg/dL AST (14-36) U/L ALT (4-34) U/L Alkaline Phosphatase (38-126) U/L 05/18/21 05/18/21 05/18/21 Range/Units 06:32 06:50 06:50 Lymphocytes # 0.6 L (1.0-4.8) k/uL Sodium 136 L (137-145) mmol/L Glucose 166 H (74-99) mg/dL POC Glucose (mg/dL) 158 H (75-99) mg/dL AST 50 H (14-36) U/L ALT 76 H (4-34) U/L Alkaline Phosphatase 172 H (38-126) U/L 05/18/21 Range/Units 13:00 Lymphocytes # (1.0-4.8) k/uL Sodium (137-145) mmol/L Glucose (74-99) mg/dL POC Glucose (mg/dL) 143 H (75-99) mg/dL AST (14-36) U/L ALT (4-34) U/L Alkaline Phosphatase (38-126) U/L Assessment and Plan Time with Patient: Greater than 30
--- NOTE | 2021-05-18 14:39 | P.DS ---
Providers Date of admission: 05/13/21 18:14 Expected date of discharge: 05/18/21 Attending physician: Alfonso Horton Consults: 05/13/21 18:47 Consult Physician Routine Consulting Provider: Connor Voss Consult Reason/Comments: medical management Do you want consulting provider notified?: Yes, Notify in am 05/16/21 13:04 Consult Physician Routine Consulting Provider: [facility] Consult Reason/Comments: [facility] Do you want consulting provider notified?: Yes Primary care physician: Naomi Godoy [facility] Course: Patient minute the hospital for abdominal pain. Clinical scenario suggesting gallstone pancreatitis. Underwent cholecystectomy yesterday. Today gradually feeling better. Mild nausea. Incisions clean and dry. Anticipate probable discharge today. Follow-up one week. Patient Condition at Discharge: Serious Plan - Discharge Summary Discharge Rx Participant: No New Discharge Prescriptions: No Action Losartan [Cozaar] 25 mg PO DAILY #30 tab Levothyroxine Sodium [Euthyrox] 50 mcg PO DAILY@0230 Metoprolol Tartrate [Lopressor] 25 mg PO BID Cyanocobalamin (Vitamin B-12) [Vitamin B-12] 1,000 mcg PO DAILY Discharge Medication List Losartan [Cozaar] 25 mg PO DAILY #30 tab 05/15/16 [Rx] Cyanocobalamin (Vitamin B-12) [Vitamin B-12] 1,000 mcg PO DAILY 05/04/21 [History] Levothyroxine Sodium [Euthyrox] 50 mcg PO DAILY@0230 05/04/21 [History] Metoprolol Tartrate [Lopressor] 25 mg PO BID 05/04/21 [History] Follow up Appointment(s)/Referral(s): Naomi Godoy MD [Primary Care Provider] - 1-2 days
[2021-05-18 14:59] VITALS: BP 159/69; RESP 18
[2021-05-18 14:59] LABS: Hemoglobin A1C 5.9 % (4.0-6.0)
== END 2021-05-18 16:24 ==
LOC: EC 15:32 → 6NMEDSUR 18:14 → 6PED 05-17 13:51
PROVIDERS: ADMIT Surgery; ATTEND Surgery
DX: K85.10 Biliary acute pancreatitis without necrosis or infection (principal); K80.20 Calculus of gallbladder without cholecystitis without obstruction; I11.9 Hypertensive heart disease without heart failure; J45.909 Unspecified asthma, uncomplicated; K76.0 Fatty (change of) liver, not elsewhere classified; H66.90 Otitis media, unspecified, unspecified ear; E66.01 Morbid (severe) obesity due to excess calories; E11.65 Type 2 diabetes mellitus with hyperglycemia; E03.9 Hypothyroidism, unspecified; Z68.37 Body mass index [BMI] 37.0-37.9, adult; Z79.890 Hormone replacement therapy; Z79.899 Other long term (current) drug therapy; Z87.891 Personal history of nicotine dependence; Z90.710 Acquired absence of both cervix and uterus
CPT/HCPCS: 47562; 99285; 96361 ×3; 96374; 96375; 36415; 93005; 88304; 80053 ×5; 82150; 83690 ×3; 83735; 84484; 85025 ×4; 85610; 85730; 81003; 81025; 83036; 71045; 76705; 74183; G0378 ×7; J2250; J2270; J1200; J1644 ×3; J1100; J2710; J2765; J2405 ×2; J2001; J3010; J1170 ×3; J0330; J2704; A9585

== ENCOUNTER → 2021-05-31 | Outpatient (CLI) | payer OTHER ==
[2021-06-01 03:45] LABS: African American GFR (CKD) 82.8 (60.0-200.0); Albumin 4.7 g/dL (3.80-4.90); Albumin/Globulin Ratio 1.96 (1.60-3.17); BUN/Creat Ratio 23.33 Ratio (12.00-20.00); Calcium 9.4 mg/dL (8.7-10.3); Globulin 2.4 g/dL (1.6-3.3); Non-African American GFR(CKD) 71.5 (60.0-200.0); Potassium 4.3 mmol/L (3.5-5.5); Total Bilirubin 0.3 mg/dL (0.2-1.2); Total Protein 7.1 g/dL (6.2-8.2)
== END | disposition home or self-care (01) ==
LOC: LABWHC1 16:19
PROVIDERS: ATTEND Surgery
DX: K85.90 Acute pancreatitis without necrosis or infection, unspecified (principal)
CPT/HCPCS: 36415; 80053

== ENCOUNTER → 2021-07-08 | Outpatient (CLI) | payer OTHER ==
[2021-07-09 04:51] LABS: African American GFR (CKD) 121.4 (60.0-200.0); Albumin 4.9 g/dL (3.8-4.9); Albumin/Globulin Ratio 2.08 (1.60-3.17); Anion Gap 13.5 mmol/L (4.00-12.00); BUN/Creat Ratio 39.86 Ratio (12.00-20.00); Calcium 9.7 mg/dL (8.7-10.3); Globulin 2.3 g/dL (1.6-3.3); Non-African American GFR(CKD) 104.7 (60.0-200.0); Potassium 4.5 mmol/L (3.5-5.5); Total Bilirubin 0.4 mg/dL (0.30-1.20); Total Protein 7.2 g/dL (6.2-8.2)
== END | disposition home or self-care (01) ==
LOC: LABWHC1 15:43
PROVIDERS: ATTEND Surgery
DX: K85.90 Acute pancreatitis without necrosis or infection, unspecified (principal)
CPT/HCPCS: 36415; 80053